=== PATIENT | female | born 1960 | race Caucasian/White ===

== ENCOUNTER 2016-08-23 17:49 | Emergency (ER) | payer MEDICARE, OTHER ==
[~2016-08-23 17:49] MED LIST: ALPR-138 PO; ASPI81 PO; FEXO180 PO; GLUCTAB PO; IBUP800 PO; LEVA750T PO; LEVO100T4 PO
[2016-08-23 17:55] VITALS: BP 149/98; PULSE 86; RESP 20; TEMP 97.9; O2SAT 98
--- NOTE | 2016-08-23 18:25 | PD ---
HPI Chief Complaint: Laceration/Skin Injury Time Seen by Provider: 18:24 Travel History International Travel<30 days: No Contact w/Intl Traveler<30days: No Traveled to known affect area: No History of Present Illness HPI 56-year-old female with MR presents to the emergency department for evaluation from her fdc. Patient is typically one-on-one and today Per report, patient experienced a fall striking the back of her head. It was witnessed her care provider. There was no loss of consciousness. Patient is unable to provide any other history. PFSH Past Medical History Autoimmune Disease: No Cancer: No Cardiovascular Problems: No Diabetes: Yes Endocrine: Yes Genitourinary: No Immune Disorder: No Musculoskeletal: No Neurologic: Yes (MENTAL RETARDATION ) Psychiatric: Yes (MENTAL RETARDATION) Reproductive: No Respiratory: No Immunizations Current: Yes Thyroid Disease: Yes Menopausal: Yes Past Surgical History AICD: No Arteriovenous Shunt: No Hysterectomy: Yes Insulin Pump: No Joint Replacement: No Pacemaker: No Social History Alcohol Use: No Tobacco Use: No Substance Use: No Allergies-Medications (Allergen,Severity, Reaction): Coded Allergies: Chocolate (Verified Allergy, Severe, 05/08/11) Reported Meds & Prescriptions Reported Meds & Active Scripts Active Reported Levaquin 750 Mg Tab (Levofloxacin) 750 Mg Tab 750 Mg PO DAILY 10 Days Motrin 800 Mg Tab (Ibuprofen) 800 Mg Tab 800 Mg PO QIDPRN Levothyroxine Sodium (Generic) (Levothyroxine Sodium) 100 Mcg Tab 100 Mcg PO DAILY Charlene (Fexofenadine HCl) 180 Mg Tab 180 Mg PO DAILY Aspirin 81 Mg Tab 81 Mg PO DAILY Glucophage (Metformin HCl) 500 Mg Tab 500 Mg PO BID Xanax (Alprazolam) 0.25 Mg Tab 0.25 Mg PO BID Review of Systems ROS Limitations: Altered Mental Status Except as stated in HPI: all other systems reviewed are Neg Physical Exam Narrative GENERAL: Well-nourished female patient, lying in bed, in no acute distress SKIN: Focused skin assessment warm/dry. HEAD: Normocephalic. Large scalp hematoma on the posterior scalp. There is a 3 cm abrasion. This does not appear to be a laceration. It is not actively bleeding. EYES: No scleral icterus. No injection or drainage. Pupils are equal and reactive. NECK: Supple, trachea midline. No JVD or lymphadenopathy. CARDIOVASCULAR: Regular rate and rhythm without murmurs, gallops, or rubs. RESPIRATORY: Breath sounds equal bilaterally. No accessory muscle use. GASTROINTESTINAL: Abdomen soft, non-tender, nondistended. MUSCULOSKELETAL: No cyanosis, or edema. Patient moves all extremities. BACK: Nontender without obvious deformity. No CVA tenderness. Data Data Last Documented VS Vital Signs Date Time Temp Pulse Resp B/P Pulse Ox O2 Delivery O2 Flow Rate FiO2 08/23/16 17:55 97.9 86 20 149/[address] Brain W/O Iv Contrast(Rout) (08/23/16 ) Ct Cerv Spine W/O Contrast (08/23/16 ) Apply Cervical Collar (08/23/16 18:17) MDM Medical Decision Making Medical Screen Exam Complete: Yes Emergency Medical Condition: Yes Medical Record Reviewed: Yes Differential Diagnosis Scalp hematoma versus skull fracture versus intracranial hemorrhage versus laceration superficial versus deep Narrative Course 56-year-old female presents to the emergency department following a fall. This was witnessed. Patient is unable to provide a history. CT imaging of the brain shows a scalp hematoma. No intracranial hemorrhage. CT imaging of cervical spine shows degenerative changes without any acute fracture or significant thecal sac stenosis. Patient abrasion is cleansed on the posterior scalp. She'll be discharged back to her fdc. Diagnosis Primary Impression: Head injury Qualified Code: S09.90XA - Head injury, initial encounter Additional Impressions: Scalp hematoma Qualified Code: S00.03XA - Scalp hematoma, initial encounter Scalp abrasion Qualified Code: S00.01XA - Scalp abrasion, initial encounter Referrals: Primary Care Physician Patient Instructions: General Instructions, Head Injury (ED) Additional Instructions: Gently wash the wound You may apply [id number] antibiotic ointments Ice to the affected area to reduce swelling Follow-up with a primary care provider If patient appears as though she is in pain, Tylenol and/or ibuprofen may be given as directed on the package Return immediately with any acute worsening of symptoms Med/Other Pt SpecificInfo: No Change to Meds Disposition: 01 DISCHARGE HOME Condition: Stable Ana Samaniego Aug 23, 2016 18:25
--- NOTE | 2016-08-23 19:08 | RADRPT ---
EXAM DATE/TIME: 08/23/2016 18:34 [facility] COMPARISON: No previous studies available for comparison. INDICATIONS : Altered mental status; possible fall. RADIATION DOSE: 56.35 CTDIvol (mGy) MEDICAL HISTORY : Non-responsive. SURGICAL HISTORY : Non-responsive. ENCOUNTER: Initial ACUITY: 1 day PAIN SCALE: Non-responsive LOCATION: cranial TECHNIQUE: Multiple contiguous axial images were obtained of the head. Using automated exposure control and adj ustment of the mA and/or kV according to patient size, radiation dose was kept as low as reasonably a chievable to obtain optimal diagnostic quality images. FINDINGS: There is no evidence for intracranial hemorrhage, mass effect, mass lesions, edema, or extra-axial fl uid collections. The visualized bony structures appear intact. The ventricles are normal size for t he patient's age. There are no signs of acute infarction for technique. There is scalp hematoma in t he right posterior high convexity parietal region with mucoperiosteal thickening of the maxillary sin uses. CONCLUSION: Scalp hematoma. Vincenzo Davis MD on August 23, 2016 at 19:04 Board Certified Radiologist. This report was verified electronically.
--- NOTE | 2016-08-23 19:12 | RADRPT ---
EXAM DATE/TIME: 08/23/2016 18:36 [facility] COMPARISON: No previous studies available for comparison. INDICATIONS : Altered mental status; possible fall. RADIATION DOSE: 34.38 CTDIvol (mGy) MEDICAL HISTORY : Non-responsive. SURGICAL HISTORY : Non-responsive. ENCOUNTER: Initial ACUITY: 1 day PAIN SCALE: Non-responsive LOCATION: neck TECHNIQUE: Volumetric scanning of the cervical spine was performed. Multiplanar reconstructions in the sagittal, coronal and oblique axial planes were performed. Using automated exposure control and adjustment o f the mA and/or kV according to patient size, radiation dose was kept as low as reasonably achievable to obtain optimal diagnostic quality images. FINDINGS: No evidence of subluxation. No definite fracture is seen for technique. C2-C3: There is no evidence for any significant compromise to the thecal sac, or the exiting nerve roots. N o appreciable thecal sac stenosis is seen. The neural foramina and lateral recess appear patent bila terally. C3-C4: There is no evidence for any significant compromise to the thecal sac, or the exiting nerve roots. N o appreciable thecal sac stenosis is seen. The neural foramina and lateral recess appear patent bila terally. C4-C5: Slight degenerative changes are seen within the disc space and facets. Slight bulging disc and hypert rophic changes are seen with indentation on the thecal sac and no significant compromise to the theca l sac or the exiting nerve roots. C5-C6: Significant degenerative changes are seen within the disc space and facets. There is effacement of th e anterior CSF space due to chronic hypertrophic changes, some degree of bulging disc with compromise to the anterior CSF space, however overall no significant thecal sac stenosis is seen. C6-C7: Moderate degenerative changes are seen within the disc space and facets. Slight bulging disc and hype rtrophic changes are seen with indentation on the thecal sac and no significant compromise to the the sarah sac or the exiting nerve roots. C7-T1: Slight degenerative changes are seen within the disc space and facets. Slight bulging disc and hypert rophic changes are seen with indentation on the thecal sac and no significant compromise to the theca l sac or the exiting nerve roots. CONCLUSION: Degenerative changes without any acute fracture or any significant thecal sac stenosis. Vincenzo Davis MD on August 23, 2016 at 19:06 Board Certified Radiologist. This report was verified electronically.
== END 2016-08-23 20:45 | disposition home or self-care (01) ==
LOC: NEDAMB 17:49
DX: S00.01XA Abrasion of scalp, initial encounter (principal); W19.XXXA Unspecified fall, initial encounter; Y92.049 Unspecified place in boarding-house as the place of occurrence of the external cause
CPT/HCPCS: 70450; 72125

== ENCOUNTER 2018-05-22 00:28 | Inpatient (IN) ==
--- NOTE | 2018-05-22 00:53 | ED ---
HPI General Chief Complaint: Stroke Alert Stated Complaint: Trans/Medical Time Seen by Provider: 05/22/18 00:40 Source: EMS and old records reviewed Mode of arrival: EMS Limitations: altered mental status and physical limitation History of Present Illness HPI Narrative: 58-year-old woman, reported history of "mental retardation", resident at [facility], presents to the emergency department with altered mental status. According to EMS she is a baseline nonverbal. They report that an hour and a half prior to arrival she got up and walked with the staff member to the bathroom. When he went to check on her later in the evening, she was not arousable. EMS reports in route she had minimal response to noxious stimulus. Did localize with the right, withdrawal on the left, and withdrawal from pain in the lower extremities. She had moaning to noxious stimulus. She had myotic pupils. No response to 0.4 Narcan. She is not on any opiates regularly. According to her more she is on Xanax, last dose quarter milligram at 4 PM. No other reported recent illness or injury. Related Data Allergies Allergy/AdvReac Type Severity Reaction Status Date / Time chocolate flavor Allergy Severe Unverified 01/01/17 13:48 Review of Systems ROS Unobtainable ROS Unobtainable: unobtainable due to mental condition [facility] Medical History Medical History Diabetes (Chronic) Hypothyroidism (Chronic) Intellectual disability (Chronic) Social History Social History Substance History: Unable to Obtain Smoking Status: Unknown if ever smoked How Often Do You Have a Drink Containing Alcohol: Unable to Obtain Recent Travel in [facility] [place] within the Last 8 Weeks: No Recent Out of Country Travel within the Last 8 Weeks: No Immunization History Tetanus Immunization: Unable to Assess Exam Narrative Exam Narrative: GENERAL: 58-year-old woman, minimally responsive, no respiratory distress. SKIN: Focused skin assessment warm/dry. HEAD: Atraumatic. Normocephalic. EYES: Myotic pupils. Absent/negative doll's eye reflex. ENT: No nasal bleeding or discharge. Mucous membranes pink and moist. NECK: Trachea midline. No JVD. CARDIOVASCULAR: Regular rate and rhythm. 2 out of 6 systolic murmur in the left chest. RESPIRATORY: No accessory muscle use. Clear to auscultation. Breath sounds equal bilaterally. GASTROINTESTINAL: Abdomen soft, non-tender, nondistended. Hepatic and splenic margins not palpable. MUSCULOSKELETAL: No obvious deformities. No edema. NEUROLOGICAL: Decreased responsiveness. Moaning to noxious stimulus. Motor response is variable. At times she will move somewhat spontaneously, other times she will not withdraw from pain despite having obvious sensation. There is no obvious facial asymmetry. Myotic pupils. VOR appears to be out. Sensation appears intact in all 4 extremities. Course Reevaluation(s) Reevaluation #1: CT shows no definite evidence of stroke. Persistent altered mental status. We will plan on admission to the ICU. Mild hypercarbia. Will monitor. I do not think she needs to be intubated at this point. Initial Documented Vital Signs Pulse Rate 58 L 05/22/18 00:31 Respiratory Rate 10 L 05/22/18 00:31 Blood Pressure 149/89 H 05/22/18 00:31 Pulse Oximetry 95 05/22/18 00:31 Last Documented Vital Signs Pulse Rate 58 L 05/22/18 00:31 Respiratory Rate 10 L 05/22/18 00:31 Blood Pressure 149/89 H 05/22/18 00:31 Pulse Oximetry 95 05/22/18 00:31 Medical Decision Making MDM Narrative Medical decision making narrative: 58-year-old woman, abrupt onset of altered mental status, stroke alert was called given the abrupt neuro change. Deficits include decreased alertness, diminished motor response to noxious stimulus, and what appears to be absent VOR at the could suggest a brainstem infarct. Seizures also on the differential although seems less likely. Toxic, drug effect, metabolic encephalopathy, also possible. Will check labs, ABG, CT, CTA , reassess. I spoke with Dr. Valentine with neurology. We are in agreement, short of evidence of basilar artery stroke or objective evidence that etiology of patient's symptoms of CVA, would recommend against TPA. Medical Screen Exam Complete: Yes Emergency Medical Condition: Yes Lab Data Result diagrams: 05/22/18 00:25 Lab Results 05/22/18 05/22/18 05/22/18 Range/Units 00:25 00:25 00:35 POC Hgb (Calc) 13.6 (11.6-15.3) g/dL POC Hct 40.0 (35-46.0) % PT 10.1 (9.8-11.6) sec INR 1.0 Ratio APTT 21.6 L (23.4-31.7) sec Fibrinogen 216 L (227-377) mg/dL Puncture Site Patient Temperature O2 Saturation (90-100) % ABG pH (7.380-7.420) ABG pCO2 (38-42) mmHg ABG pO2 (61-120) mmHg ABG HCO3 (22-26) mmol/L ABG O2 Content (12.0-20.0) Vol % ABG Base Excess (-2-2) mmol/L ABG Methemoglobin (0-2) % Segun Test Hemoglobin (12.0-16.0) G/DL Carboxyhemoglobin (0-4) % Inspired O2 % Critical Value POC Sodium 144 (137-144) mmol/L POC Potassium 4.5 (3.6-5.0) mmol/L POC Chloride 105 (102-111) mmol/L POC BUN 27 H (5-21) mg/dL POC Creatinine 0.7 (0.6-1.3) mg/dL POC Glucose 145 H (68-110) mg/dL Total Creatine Kinase 88 (26-192) U/L Troponin I Less than 0.02 L (0.02-0.05) ng/mL Blood Type O Positive 05/22/18 Range/Units 01:10 POC Hgb (Calc) (11.6-15.3) g/dL POC Hct (35-46.0) % PT (9.8-11.6) sec INR Ratio APTT (23.4-31.7) sec Fibrinogen (227-377) mg/dL Puncture Site Right brachial Patient Temperature 98.6 O2 Saturation 93 (90-100) % ABG pH 7.35 L (7.380-7.420) ABG pCO2 56 H* (38-42) mmHg ABG pO2 78 (61-120) mmHg ABG HCO3 30 H (22-26) mmol/L ABG O2 Content 16.5 (12.0-20.0) Vol % ABG Base Excess 4.5 H (-2-2) mmol/L ABG Methemoglobin 0.7 (0-2) % Segun Test Present Hemoglobin 12.6 (12.0-16.0) G/DL Carboxyhemoglobin 1.1 (0-4) % Inspired O2 21 % Critical Value Yes POC Sodium (137-144) mmol/L POC Potassium (3.6-5.0) mmol/L POC Chloride (102-111) mmol/L POC BUN (5-21) mg/dL POC Creatinine (0.6-1.3) mg/dL POC Glucose (68-110) mg/dL Total Creatine Kinase (26-192) U/L Troponin I (0.02-0.05) ng/mL Blood Type Imaging Data Radiologist's impression: CT CAD 05/22/18 00:38 CONCLUSION: Physiological brain perfusion parameters with RAPID analysis as above. The decision for consideration of therapy is multi factorial and multi disciplinary relying on subjective and objective clinical data. This data is not construed or intended to be the sole determinant of treatment eligibility. Chest X-Ray 05/22/18 00:38 CONCLUSION: No acute cardiopulmonary process. Head CT 05/22/18 00:38 CONCLUSION: 1. No acute areas of hemorrhage or mass effect are seen. 2. Questionable hyperdense distal left M1 middle cerebral artery. This could be further evaluated with a CTA. The patient is scheduled for a CTA. Report was called by [Dr. Crawley to Dr. Delgado at 12:59 AM.] Head CTA 05/22/18 00:38 CONCLUSION: Negative CTA of the head. Neck CTA 05/22/18 00:38 CONCLUSION: 1. Plaque at the carotid bulb regions being worse than the left but a significant stenosis is not seen. 2. Asymmetry to the vertebral arteries which can be seen normally. The left vertebral artery is larger and continues as the basilar artery. The right vertebral artery ends at the posterior inferior cerebellar artery. 3. Normal appearance of the left vertebral artery arising directly from the aortic arch. ECG Data Attestation: I personally reviewed and interpreted this ECG as follows: Interpretation: Sinus bradycardia at a rate of 58, leftward axis, normal intervals, no acute ischemia. Discharge Plan Discharge Disposition Patient Disposition: ED Admit(ED Internal Use Only) Physicians Team ED Provider: Clem Delgado Primary Care Provider: UNKNOWN, Other Providers: Lc Jones Status ED Status: With Doctor
--- NOTE | 2018-05-22 01:02 | CT ---
EXAM DATE: 05/22/2018 12:54 AM EST AGE/SEX: 58 years / Female INDICATIONS: STROKE ALERT, unresponsive, unable to move lower extremities. CLINICAL DATA: This is the patient's initial encounter. Patient reports that signs and symptoms have been present for 1 day and indicates a pain score of 0/10. MEDICAL/SURGICAL HISTORY: Non-responsive. mentally challenged Non-responsive. RADIATION DOSE: 53.22 CTDI (mGy) COMPARISON: No prior exams available for comparison. TECHNIQUE: CT of the head without contrast. Using automated exposure control and adjustment of the mA and/or kV according to patient size, radiation dose was kept as low as reasonably achievable to ob tain optimal diagnostic quality images. DICOM format image data is available electronically for revi ew and comparison. FINDINGS: Cerebrum: The ventricles are normal for age. There is a questionable hyperdense linear area seen at the anterior left temporal region which could be in the distal left middle cerebral artery. No eviden ce of midline shift, mass lesion, hemorrhage or acute infarction. No extraaxial fluid collections ar e seen. Posterior Fossa: The cerebellum and brainstem are intact. The 4th ventricle is midline. The cerebe llopontine angle is unremarkable. Extracranial: The visualized portion of the orbits is intact. Skull: The calvaria is intact. No evidence of skull fracture. CONCLUSION: 1. No acute areas of hemorrhage or mass effect are seen. 2. Questionable hyperdense distal left M1 middle cerebral artery. This could be further evaluated wi th a CTA. The patient is scheduled for a CTA. Report was called by [Dr. Crawley to Dr. Delgado at 12:59 AM.] Electronically signed by: Adán Crawley MD Board Certified Radiologist 05/22/2018 1:01 AM EST
--- NOTE | 2018-05-22 01:07 | CT ---
EXAM DATE: 05/22/2018 1:01 AM EST AGE/SEX: 58 years / Female INDICATIONS: STROKE ALERT, unresponsive, unable to move lower extremities. CLINICAL DATA: This is the patient's initial encounter. Patient reports that signs and symptoms have been present for 1 day and indicates a pain score of Nonresponsive. MEDICAL/SURGICAL HISTORY: Non-responsive. mentally challenged Non-responsive. RADIATION DOSE: 217.32 CTDI (mGy) COMPARISON: [facility], CTA HEAD W CONTRAST W 3D, 05/22/2018. . TECHNIQUE: CT of the head after intravenous administration of 100ml ml Visipaque 320 (iodixanol) no nionic water-soluble contrast as a cumulative dose for multiple exams. Using automated exposure cont rol and adjustment of the mA and/or kV according to patient size, radiation dose was kept as low as r easonably achievable to obtain optimal diagnostic quality images. DICOM format image data is availab le electronically for review and comparison. FINDINGS: 1. CBF (<30%) Volume (ml): 0ml 2. Perfusion (Tmax>6.0s) Volume (ml): 30ml 3. Mismatch Volume (ml) (Tmax>6.0 - CBF): 30ml CONCLUSION: Physiological brain perfusion parameters with RAPID analysis as above. The decision for consideration of therapy is multi factorial and multi disciplinary relying on subjec tive and objective clinical data. This data is not construed or intended to be the sole determinant of treatment eligibility. Electronically signed by: Adán Crawley MD Board Certified Radiologist 05/22/2018 1:05 AM EST
[2018-05-22 01:10] LABS: Activated Partial Thrombo Time 21.6 sec (23.4-31.7); Prothrombin Time 10.1 sec (9.8-11.6)
--- NOTE | 2018-05-22 01:11 | CT ---
EXAM DATE: 05/22/2018 1:04 AM EST AGE/SEX: 58 years / Female INDICATIONS: STROKE ALERT, unresponsive, unable to move lower extremities. CLINICAL DATA: This is the patient's initial encounter. Patient reports that signs and symptoms have been present for 1 day and indicates a pain score of Nonresponsive. MEDICAL/SURGICAL HISTORY: . mentally challenged Non-responsive. RADIATION DOSE: 10.02 CTDI (mGy) [place] [facility] [place] W 3D, 05/22/2018. . TECHNIQUE: Volumetric scanning was performed using a multi-row detector CT scanner during bolus infu lamar of 100ml ml Visipaque 320 (iodixanol) nonionic water-soluble contrast as a cumulative dose for multiple exams. The data was post processed with a variety of visualization algorithms including fu ll volume maximum intensity projection, multi-planar sliding thin slab reformation, curved planar ref ormation, and surface rendering techniques. Using automated exposure control and adjustment of the m A and/or kV according to patient size, radiation dose was kept as low as reasonably achievable to obt ain optimal diagnostic quality images. DICOM format image data is available electronically for revie w and comparison. FINDINGS: There is excellent visualization of the major intracranial arteries out to the second-order branch ve ssels. There is no evidence for aneurysm, vessel truncation or stenosis, and no evidence for vascula r malformation. No significant area of stenosis or occlusion is seen. On the CT examination, there is questionable hy perdense distal left middle cerebral artery. The left middle cerebral artery is normal on the CTA. Th e CTA better evaluates the vessels. CONCLUSION: Negative CTA of the head. Electronically signed by: Adán Crawley MD Board Certified Radiologist 05/22/2018 1:10 AM EST
--- NOTE | 2018-05-22 01:19 | CT ---
EXAM DATE: 05/22/2018 1:10 AM EST AGE/SEX: 58 years / Female INDICATIONS: STROKE ALERT, unresponsive, unable to move lower extremities. CLINICAL DATA: This is the patient's initial encounter. Patient reports that signs and symptoms have been present for 1 day and indicates a pain score of Nonresponsive. MEDICAL/SURGICAL HISTORY: . mentally challenged Non-responsive. RADIATION DOSE: 10.02 CTDI (mGy) COMPARISON: No prior exams available for comparison. TECHNIQUE: Volumetric scanning was performed using a multirow detector CT scanner during bolus infus ion of 100ml ml Visipaque 320 (iodixanol) nonionic water-soluble contrast as a cumulative dose for m ultiple exams. The data was postprocessed with a variety of visualization algorithms including full -volume maximum intensity projection, multiplanar sliding thin-slab reformation, curved-planar reform ation, and surface-rendering techniques. Using automated exposure control and adjustment of the mA a nd/or kV according to patient size, radiation dose was kept as low as reasonably achievable to obtain optimal diagnostic quality images. DICOM format image data is available electronically for review a nd comparison. FINDINGS: Aortic Arch: There is a three-vessel origin of the great vessels from the aorta. In addition, the l eft vertebral artery arises directly from the aorta to the left common and left subclavian arteries. This is a normal variant. No evidence of ostial narrowing Right Carotid: The common carotid artery is intact. There is mild calcification seen at the carotid bulb without significant stenosis.. The internal carotid artery lumen is smooth without stenosis. T he external carotid artery is intact. Left Carotid: The common carotid artery is intact. There is mild plaque at the left carotid bulb re gion with only mild areas of stenosis. A hemodynamically significant stenosis is not seen. The product managent intern al carotid artery lumen is smooth without stenosis. The external carotid artery is intact. Vertebrals: The vertebral arteries are asymmetric flow to large being larger. Both vertebral arterie s are seen to be patent throughout the neck. The left vertebral artery continues as the left vertebra l artery. The right vertebral artery appears to end at the posterior inferior cerebellar artery. Percent stenosis is calculated using the diameter of the stenotic region over the diameter of the nor mal distal internal carotid artery. CONCLUSION: 1. Plaque at the carotid bulb regions being worse than the left but a significant stenosis is not se en. 2. Asymmetry to the vertebral arteries which can be seen normally. The left vertebral artery is larg er and continues as the basilar artery. The right vertebral artery ends at the posterior inferior cer ebellar artery. 3. Normal appearance of the left vertebral artery arising directly from the aortic arch. Electronically signed by: Adán Crawley MD Board Certified Radiologist 05/22/2018 1:18 AM EST
--- NOTE | 2018-05-22 01:21 | XR ---
EXAM DATE: 05/22/2018 1:14 AM EST AGE/SEX: 58 years / Female INDICATIONS: Stroke alert. CLINICAL DATA: This is the patient's initial encounter. Patient reports that signs and symptoms have been present for 1 day and indicates a pain score of Nonresponsive. MEDICAL/SURGICAL HISTORY: Non-responsive. Non-responsive. COMPARISON: No prior exams available for comparison. FINDINGS: A single AP view of the chest demonstrates the lungs to be symmetrically aerated without evidence of mass, infiltrate or effusion. The cardiomediastinal contours are unremarkable. Osseous structures a re intact. There are nonspecific areas of calcification the left upper quadrant of the abdomen. CONCLUSION: No acute cardiopulmonary process. Electronically signed by: Adán Crawley MD Board Certified Radiologist 05/22/2018 1:20 AM EST
[2018-05-22 01:22] LABS: ABG Base Excess 4.5 mmol/L (-2-2); ABG PCO2 56 mmHg (38-42); ABG PO2 78 mmHg (61-120)
[2018-05-22 01:26] LABS: Creatine Kinase 88 U/L (26-192)
[2018-05-22] MEDS ORDERED: Acetaminophen 325 MG Tablet PO PRN (02:44)
[2018-05-22] MEDS ORDERED: Enoxaparin Inj 40 MG/0.4 ML Syringe SQ SCH (02:45)
[2018-05-22] MEDS ORDERED: Dextrose 50% in Water 50 ML Vial IV.PUSH PRN (02:48)
[2018-05-22 03:16] LABS: Baso % (Auto) 0.9 % (0.0-2.0); Eos # (Auto) 0.2 th/mm3 (0.0-0.4); Eos % (Auto) 4.7 % (0.0-4.0); Hematocrit 40.4 % (35.0-46.0); Hemoglobin 13.8 gm/dL (11.6-15.3); Lymph # (Auto) 1.7 th/mm3 (1.0-4.8); Lymph % (Auto) 33.4 % (9.0-44.0); Mean Corpuscular HGB Conc 34.1 % (32.0-36.0); Mean Corpuscular Hemoglobin 30.5 pg (27.0-34.0); Mean Corpuscular Volume 89.4 fL (80.0-100.0); Mean Platelet Volume 7.9 fL (7.0-11.0); Mono # (Auto) 0.5 th/mm3 (0.0-0.9); Mono % (Auto) 9.3 % (0.0-8.0); Neut # (Auto) 2.6 th/mm3 (1.8-7.7); Neut % (Auto) 51.7 % (16.0-70.0); Platelet Count 172 th/mm3 (150-450); Red Blood Count 4.51 mil/mm3 (4.00-5.30); Red Cell Distribution Width 13.2 % (11.6-17.2); White Blood Count 5.1 th/mm3 (4.0-11.0)
[2018-05-22 03:20] LABS: Bacteria,Urine Many /hpf; Bilirubin,Urine Negative (Negative); Clarity,Urine Cloudy (Clear); Color,Urine Yellow (Yellw/Straw); Glucose,Urine (UA) Negative (Negative); Leukocyte Esterase,Urine Large (Negative); Mucus,Urine Few /lpf (Occasional); Nitrite,Urine Positive (Negative); Specific Gravity,Urine 1.042 (1.002-1.035); Squamous Epithelial Cell,Urine 4 /hpf (0-5)
[2018-05-22 03:22] LABS: Amphetamine Screen,Urine Neg (Neg); Barbiturate Screen,Urine Neg (Neg); Cannabinoid Screen,Urine Neg (Neg); Cocaine Screen,Urine Neg (Neg)
[2018-05-22 03:23] LABS: Opiate Screen,Urine Neg (Neg)
--- NOTE | 2018-05-22 03:27 | P.HPIM ---
History of Present Illness Primary Care Physician: History from patient's shelter staff, ER physician communication,Staff member from the facility, and review of medical records. Patient is baseline Aphasic However she is able to ambulate at the nursing facility. Staff at the facility reported that patient was walking around going to the bathroom on her own at around 9:30 PM. At 11:30 PM, after the at 11:30 PM, the staff member who spoke to me went and checked on the patient for vitals and during that time noted that patient was unresponsive, looked lethargic. Therefore EMS was called. EMS gave patient Narcan and no response. Patient was noted to have pinpoint pupils. While in the emergency room, patient also was very lethargic although she does move her lower extremities and upper extremities spontaneously. Stroke alert was initially called. Her CT brain is negative for acute pathology. Per staff from the facility, patient is well-known to them and they usually can tell when patient has complaints. Staff reported that patient was not having any acute symptoms over the past few weeks such as fever/cough/nausea/vomiting/ diarrhea/urinary symptoms/blood in stool or urine. She was not having any shortness of breath or passing out episodes or falls. In regards to her medications, there was no new changes to her medications. Staff stated that patient is on Xanax twice daily and temazepam nightly. When this was changed, patient usually takes her evening dose of Xanax at 4 PM and takes temazepam late at night. Again, this is not a new change for her. Review of system: Complete review of system is performed and is negative apart from what is mentioned in HPI Past medical history: Hypothyroidism Severe mental retardation since Past surgical history: Unknown Family history: Unknown. No family members present. Social history: Patient of a long-term facility. Mentally challenged. Aphasic. Home medications: Patient has list of her medications with her from the facility. The nurse confirmed that this was updated on our med reconciliation system. Inpatient Certification Inpatient Certification: I certify that the inpatient services were ordered in accordance with Medicare regulations governing the order. This includes certification that hospital inpatient services are reasonable and necessary and in the case of services not specified as inpatient-only under 42 CFR 419.22(n), that they are appropriately provided as inpatient services in accordance to with the 2-midnight benchmark under 43 CFR 412.3(e) Estimated Total Length of Stay (Days): 3 Plans for Post Hospital Care: retirement Review of Systems Review of Systems: all other systems reviewed are negative [facility] Medical History Medical History Diabetes (Chronic) Hypothyroidism (Chronic) Intellectual disability (Chronic) Social History Social History Substance History: Unable to Obtain Smoking Status: Unknown if ever smoked How Often Do You Have a Drink Containing Alcohol: Unable to Obtain Recent Travel in [facility] within the Last 8 Weeks: No Recent Out of Country Travel within the Last 8 Weeks: No Immunization History Tetanus Immunization: Unable to Assess Medications and Allergies Allergies Allergy/AdvReac Type Severity Reaction Status Date / Time chocolate flavor Allergy Severe Hives Unverified 05/22/18 03:16 Home Medications Medication Instructions Recorded Confirmed Type acetaminophen 500 mg PO Q6H PRN MDD 100mg 05/22/18 05/22/18 History alprazolam 0.25 mg PO BID 05/22/18 05/22/18 History aspirin [Aspirin Low Dose] 81 mg PO DAILY 05/22/18 05/22/18 History cetirizine 10 mg PO DAILY 05/22/18 05/22/18 History cholecalciferol (vitamin D3) 50,000 unit PO WEEKLY 05/22/18 05/22/18 History [Vitamin D3] docusate sodium 100 mg PO DAILY 05/22/18 05/22/18 History ferrous sulfate 325 mg PO BID 05/22/18 05/22/18 History fexofenadine 180 mg PO DAILY 05/22/18 05/22/18 History guaifenesin [Tussin] 100 mg PO Q4HR 05/22/18 05/22/18 History levothyroxine 100 mcg PO DAILY 05/22/18 05/22/18 History loperamide 2 mg PO DAILY 05/22/18 05/22/18 History promethazine 25 mg PO Q6H PRN MDD 100 05/22/18 05/22/18 History propranolol 10 mg PO BID 05/22/18 05/22/18 History temazepam 15 mg PO HS 05/22/18 05/22/18 History Active Medications: Active Medications Acetaminophen (Tylenol) 650 mg PO Q4H PRN PRN Reason: Temp > 100.4 Dextrose (D50w Vial) 50 ml IV.PUSH UNSCH PRN PRN Reason: PER HYPOGLYCEMIA PROTOCOL Enoxaparin Sodium (Lovenox Inj) 40 mg SQ Q24H ZION Glucagon (Glucagon Inj) 1 mg OTHER PRN PRN PRN Reason: for Hypoglycemia Protocol Sodium Chloride (Ns Inj) 1,000 mls @ 70 mls/hr IV.CONT .[id number] ZION Potassium Chloride/Dextrose/Sod Cl (D5w/1/2ns + Kcl 20 Meq Inj) 1,000 mls @ 100 mls/hr IV.CONT .Q10H ZION Ceftriaxone Sodium 2,000 mg/ (Sodium Chloride) 100 mls @ 200 mls/hr IV.SIG Q12H ZION Insulin Aspart (Novolog Insulin Correctional Sugar Inj) 0 unit SQ Q6HR ZION; Protocol Ondansetron HCl (Zofran Inj) 4 mg IV.PUSH Q6H PRN PRN Reason: NAUSEA OR VOMITING Sodium Chloride (Ns Flush) 2 ml IV.FLUSH BID ZION Sodium Chloride (Ns Flush) 2 ml IV.FLUSH PRN PRN PRN Reason: FLUSH AFTER USING IV ACCESS Physical Exam Vital signs: Last Vital Signs Temp 97 F L 05/22/18 03:05 Pulse 55 L 05/22/18 03:05 Resp 10 L 05/22/18 03:05 BP 171/70 H 05/22/18 03:05 Pulse Ox 95 05/22/18 00:31 Intake & Output 05/19/18 05/20/18 05/21/18 05/22/18 06:59 06:59 06:59 06:59 Weight 71.2 kg GENERAL: Looks much older than her age. Not in acute distress. However is not opening her eyes. HEENT: Pupils are pinpoint. Nonreactive. Not tracking at all. Obvious neck rigidity on exam. CARDIOVASCULAR: Regular rate and rhythm without murmurs, gallops, or rubs. RESPIRATORY: Clear to auscultation. Breath sounds equal bilaterally. No wheezes , rales, or rhonchi. However with limited exam as patient is not following commands and has poor inspiratory effort. GASTROINTESTINAL: Abdomen soft, non-tender, nondistended. Normal active bowel sounds MUSCULOSKELETAL: Extremities without clubbing, cyanosis, or edema. NEURO: Lethargic. Closing her eyes. However is able to move her hand spontaneously although not purposeful. Similarly, she is moving her lower extremities although not purposeful. Pinpoint pupils. Not tracking at all. Results Labs CBC & Chem 7: 05/22/18 03:[address] CAD 05/22/18 00:38 CONCLUSION: Physiological brain perfusion parameters with RAPID analysis as above. The decision for consideration of therapy is multi factorial and multi disciplinary relying on subjective and objective clinical data. This data is not construed or intended to be the sole determinant of treatment eligibility. Chest X-Ray 05/22/18 00:38 CONCLUSION: No acute cardiopulmonary process. Head CT 05/22/18 00:38 CONCLUSION: 1. No acute areas of hemorrhage or mass effect are seen. 2. Questionable hyperdense distal left M1 middle cerebral artery. This could be further evaluated with a CTA. The patient is scheduled for a CTA. Report was called by [Dr. Crawley to Dr. Delgado at 12:59 AM.] Head CTA 05/22/18 00:38 CONCLUSION: Negative CTA of the head. Neck CTA 05/22/18 00:38 CONCLUSION: 1. Plaque at the carotid bulb regions being worse than the left but a significant stenosis is not seen. 2. Asymmetry to the vertebral arteries which can be seen normally. The left vertebral artery is larger and continues as the basilar artery. The right vertebral artery ends at the posterior inferior cerebellar artery. 3. Normal appearance of the left vertebral artery arising directly from the aortic arch. Caprini VTE Risk Assessment Caprini VTE Risk Assessment: Moderate/High Risk (score >= 2) Caprini Risk Assessment Model: Point Value = 1 Point Value = 2 Point Value = 3 Point Value = 5 Age 41-60 Minor surgery BMI > 25 kg/m2 Swollen legs Varicose veins or History of unexplained or recurrent spontaneous Oral contraceptives or hormone replacement Sepsis (< 1 month) Serious lung disease, including pneumonia (< 1 month) Abnormal pulmonary function Acute myocardial infarction Congestive heart failure (< 1 month) History of inflammatory bowel disease Medical patient at bed rest Age 61-74 Arthroscopic surgery Major open surgery (> 45 min) Laparoscopic surgery (> 45 min) Malignancy Confined to bed (> 72 hours) Immobilizing plaster cast Central venous access Age >= 75 History of VTE Family history of VTE Factor V Leiden Prothrombin [id number] Lupus anticoagulant Anticardiolipin antibodies Elevated serum homocysteine Heparin-induced thrombocytopenia Other congenital or acquired thrombophilia Stroke (< 1 month) Elective arthroplasty Hip, pelvis, or leg fracture Acute spinal cord injury (< 1 month) Prophylaxis Regimen: Total Risk Factor Score Risk Level Prophylaxis Regimen 0-1 Low Early ambulation 2 Moderate Order ONE of the following: *Sequential Compression Device (SCD) *Heparin 5000 units SQ BID 3-4 Higher Order ONE of the following medications: *Heparin 5000 units SQ TID *Enoxaparin/Lovenox 40 mg SQ daily (WT < 150 kg, CrCl > 30 mL/min) *Enoxaparin/Lovenox 30 mg SQ daily (WT < 150 kg, CrCl > 10-29 mL/min) *Enoxaparin/Lovenox 30 mg SQ BID (WT < 150 kg, CrCl > 30 mL/min) AND/OR *Sequential Compression Device (SCD) 5 or more Highest Order ONE of the following medications: *Heparin 5000 units SQ TID (Preferred with Epidurals) *Enoxaparin/Lovenox 40 mg SQ daily (WT < 150 kg, CrCl > 30 mL/min) *Enoxaparin/Lovenox 30 mg SQ daily (WT < 150 kg, CrCl > 10-29 mL/min) *Enoxaparin/Lovenox 30 mg SQ BID (WT < 150 kg, CrCl > 30 mL/min) AND *Sequential Compression Device (SCD) Assessment and Plan Plan Impression: Acute encephalopathy Possible meningitis. Bacterial versus viral. Leukocytosis Eosinophilia Sinus bradycardia on EKG PCO2 of 56 on ABG. With compensated pH.We will monitor for CO2 retention. Hypothyroidism Severe mental retardation since Plan: Patient's imaging studies reviewed. No pathology to explain her encephalopathy. We will start patient on Rocephin 2 g IV every 12 hours. Start vancomycin 15-20 mg/kg IV every 12 hours meningitic dose. Start on ampicillin for Listeria coverage. EEG in a.m. Ammonia level. Lactobacillus. We will check TSH. Patient is bradycardic on EKG. Will monitor on telemetry. Although patient pH is compensated, PCO2 slightly high at 56. We will repeat. DVT prophylaxis with Lovenox.
[2018-05-22] MEDS: KCL 20 mEq/D5W/NaCl 0.45% Inj 1,000 ML IV.CONT SCH ×2 (03:30→16:03)
[2018-05-22] MEDS: Sod Chloride 0.9% Inj 1,000 ML IV.CONT SCH ×2 (03:33→15:41)
[2018-05-22] MEDS ORDERED: Vancomycin Consult Pharmacy OTHER PRN (04:49)
[2018-05-22] MEDS ORDERED: Vancomycin Inj 1,500 MG in Sodium Chlor 0.9% Inj 500 ML IV.SIG SCH (05:00)
[2018-05-22 06:06] LABS: Prothrombin Time 10.3 sec (9.8-11.6)
[2018-05-22] MEDS: Insulin NovoLOG Aspart Correctional Sugar Inj SQ SCH ×4 (07:14→23:28)
[2018-05-22 09:00] LABS: ABG Base Excess 3.5 mmol/L (-2-2); ABG PCO2 48 mmHg (38-42); ABG PO2 95 mmHG (61-120)
[2018-05-22 10:29] LABS: Free T4 (Free Thyroxine) 0.92 ng/dL (0.76-1.46)
--- NOTE | 2018-05-22 10:33 | P.PNADD ---
Addendum to Inpatient Note Reason for Addendum: Additional Documentation Additional information: Caregiver at the bedside, says that the patient is more alert now than last night but is still not alert enough to her baseline. Says at baseline the patient has developmental delay and does not verbalize any words but just makes incoherent sounds. Says that at baseline the patient usually follows instructions, feeds herself. Caregiver will give me a friendly warning that if and when the patient becomes more alert and back to her baseline she will become very uncooperative with imaging and testing and even venipunctures. Patient appears to be awake, alert. Appears to have a good GCS at least 12. Drank water for the nurse. Clear lungs bilaterally, labored breathing Heart sounds regular rate and rhythm No lower extremity edema Extraocular motions intact, follows fist automobile rental clerk commands, grossly moves all 4 extremities continuously Pupils are constricted bilaterally and symmetrical and round TSH significantly elevated, ordering free T4 and B12 levels. MRI ordered if patient is cooperative. LP has been put on hold due to the Lovenox shot being given earlier this morning.
--- NOTE | 2018-05-22 15:01 | MB ---
cc: Lc Jones MD, PhD DATE: 05/22/2018 NEUROLOGY CONSULTATION REASON FOR CONSULTATION: Unresponsiveness. HISTORY OF PRESENT ILLNESS: This is a 68-year-old female who has baseline mental retardation as well as aphagia; lives in a fpc, who was found unresponsive and EMS was called. EMS gave her Narcan; no response. In the ER she is very lethargic with no focal abnormalities. She had a CT of the brain, which is unremarkable. She has since regained consciousness; is not communicative, which is apparently her baseline state. Again, no focal deficits. PAST MEDICAL HISTORY: History of severe mental retardation since , hypothyroidism. MEDICATIONS: Currently are: 1. Ampicillin 2. Tylenol. 3. Ceftriaxone. 4. Lovenox 40 mg subcutaneously daily. 5. Insulin. 6. Levothyroxine. 7. Lactobacillus. 8. Zofran. 9. Vancomycin. NEUROLOGICAL EXAMINATION: VITAL SIGNS: Blood pressure is 171/70, temperature 96.8 degrees, pulse 74. HIGHER CORTICAL FUNCTION: She is lethargic, but arousable; does not talk. She does not follow commands. Cranial nerves are intact. There is no facial asymmetry. Motor exam demonstrates normal strength of all major groups in both upper and lower extremities. Tone is normal. Reflexes are symmetric. IMAGING STUDIES: 1. CT brain normal, except questionable hyperdense MCA on the left. 2. She did have a CT angiogram of the brain, which is normal. No evidence of any MCA occlusion. 3. She had a CT angiogram of the neck as well with bilateral carotid plaquing, but no significant stenosis; asymmetry to the vertebral arteries, possibly normal variant. LABORATORY DATA: White count is 5100, hemoglobin 13.8, hematocrit 40%, platelet count is 172,000. PT 10.1, INR 1, aPTT 21.6. Sodium is 144, potassium 4.5, chloride 105, BUN is 27, creatinine 0.7, glucose is 145. DIAGNOSTIC DATA: EEG does reveal epileptiform discharges in the frontal region, but the official report is pending. IMPRESSION: This may have been a seizure given the abnormal EEG with postictal state. RECOMMENDATIONS: Recommend starting Keppra 500 mg p.o. b.i.d. Also obtain a brain MRI. She does have a low B12 level; we will supplement with parenteral B12. Lc Jones MD, PhD JM/glendy , 02:43 PM , 02:53 PM
--- NOTE | 2018-05-22 15:54 | MG ---
cc: Krupa Elias MD EEG NUMBER: [id number]. REFERRING PHYSICIAN: Dr. Martin referred him. ROOM: 501. INDICATIONS: Awake, drowsy asleep with photic stimulation done. CT: No acute findings except for possible questionable hyperdense distal left M1 segment admitted with change in mental status; baseline is nonverbal, apparently walked with staff members earlier and then was unarousable per EMS. History of mental retardation, hypothyroidism, diabetes. CURRENT MEDICINES: 1. Ampicillin 2. Ceftriaxone. 3. Lovenox. 4. Vancomycin. DESCRIPTION OF RECORD: Significant eye movement artifact documented, but overall background is of 6 Hz. May be a spike and wave discharge noted at epoch 11; looks to be bilateral. Then again spike and wave noted at epoch 25 and continues from epoch 36 off and on in the recording. Photic stimulation is then performed towards the end of the recording with some mild driving response. IMPRESSION: Abnormal EEG due to spike and wave discharges concerning for ongoing epileptiform features. Clinical correlation if not on antiepileptic medication, should be considered with a repeat study. Krupa Elias MD DF/glendy , 03:31 PM , 03:38 PM
--- NOTE | 2018-05-22 15:56 | ECG ---
Date Performed: 05/22/2018 Time Performed: 00:37:38 PTAGE: 58 years EKG: SINUS BRADYCARDIA BORDERLINE LEFT AXIS DEVIATION BORDERLINE ECG Compared to PREVIOUS TRACING , sinus tachycardia is no longer evident. The minimal lateral ST-T wave changes are no longer present. Tracing is now essentially within normal limits. PREVIOUS TRACIN07/2018 00.36 DOCTOR: Janay Farrell Interpretating Date/Time 05/22/2018 15:55:59
[2018-05-22] MEDS: ALPRAZolam 0.25 MG Tablet PO SCH (20:24)
[2018-05-22] MEDS: Temazepam 15 MG Capsule PO SCH (20:24)
[2018-05-22] MEDS ORDERED: Metoprolol Inj 5 MG/5 ML Vial IV.PUSH ONE (21:00)
[2018-05-22] MEDS: Vancomycin Inj 1,250 MG in Sodium Chlor 0.9% Inj 250 ML IV.SIG SCH (21:15)
[2018-05-23] MEDS: KCL 20 mEq/D5W/NaCl 0.45% Inj 1,000 ML IV.CONT SCH ×3 (02:08→20:55)
[2018-05-23 04:11] LABS: Baso % (Auto) 0.5 % (0.0-2.0); Eos # (Auto) 0.1 th/mm3 (0.0-0.4); Eos % (Auto) 1.3 % (0.0-4.0); Hematocrit 36.8 % (35.0-46.0); Hemoglobin 13.1 gm/dL (11.6-15.3); Lymph # (Auto) 1.2 th/mm3 (1.0-4.8); Lymph % (Auto) 16.2 % (9.0-44.0); Mean Corpuscular HGB Conc 35.6 % (32.0-36.0); Mean Platelet Volume 7.5 fL (7.0-11.0); Mono # (Auto) 0.4 th/mm3 (0.0-0.9); Mono % (Auto) 5.7 % (0.0-8.0); Neut # (Auto) 5.9 th/mm3 (1.8-7.7); Neut % (Auto) 76.3 % (16.0-70.0); Platelet Count 181 th/mm3 (150-450); Red Blood Count 4.23 mil/mm3 (4.00-5.30); Red Cell Distribution Width 12.8 % (11.6-17.2); White Blood Count 7.7 th/mm3 (4.0-11.0)
[2018-05-23 04:44] LABS: Alanine Aminotransferase 28 U/L (10-53); Albumin 2.9 g/dL (3.4-5.0); Anion Gap 5 meq/L (5-15); Aspartate Aminotransferase 12 U/L (15-37); Blood Urea Nitrogen 7 mg/dL (7-18); Calcium 8.3 mg/dL (8.5-10.1); Carbon Dioxide 29.7 meq/L (21.0-32.0); Chloride 109 meq/L (98-107); Glomerular Filtration Rate 85 mL/min (>89); Glucose,Random 137 mg/dL (74-106); Potassium 3.8 meq/L (3.5-5.1); Sodium 144 meq/L (136-145)
[2018-05-23 04:46] LABS: Alkaline Phosphatase 74 U/L (45-117); Total Protein 7.2 g/dL (6.4-8.2)
[2018-05-23] MEDS: Sod Chloride 0.9% Inj 1,000 ML IV.CONT SCH ×2 (05:50→20:56)
[2018-05-23] MEDS: Levothyroxine 100 MCG Tablet PO SCH (05:51)
[2018-05-23] MEDS: Insulin NovoLOG Aspart Correctional Sugar Inj SQ SCH ×3 (05:52→19:32)
--- NOTE | 2018-05-23 09:52 | P.PNIM ---
Subjective Interval history: Nursing noted the patient was getting tachycardic last night into 120s. EKG which had been reviewed showed sinus tachycardia which could have been rebound tachycardia from being off of the patient propranolol which I deliberately kept with held due to altered mental status. Patient was given a dose of Lopressor IV this evening. Dayshift nurse reports that the patient did actually get hypothermic last night down to 92 F, unsure of the physician was notified, arvind stinson was applied. Had a thorough discussion with the patient's sister and [id number] who are originally the ones that he declined the lumbar puncture. I informed that it was medically necessary given that she likely has an infection somewhere and is yet to be detected. The conveyed a strong message to keep her more comfortable even if it meant withholding certain medical procedures that were medically necessary to keep her alive. They are open to a palliative care discussion, they reiterate they do not want a lumbar puncture even with sedation, they have brought the DNR forms with him to the hospital. Physical Exam Vital signs: Vital Signs 05/22/18 10:00 05/22/18 11:03 05/22/18 12:00 Temperature 96.8 F L Pulse Rate 74 65 Respiratory Rate 16 Blood Pressure 193/84 H Pulse Oximetry 95 05/22/18 14:00 05/22/18 16:00 05/22/18 18:00 Temperature 96.8 F L Pulse Rate 102 H 112 H 128 H Respiratory Rate 16 Blood Pressure 178/75 H Pulse Oximetry 05/22/18 20:00 05/22/18 20:15 05/22/18 22:00 Temperature Pulse Rate 124 H 102 H Respiratory Rate 15 Blood Pressure 197/87 H Pulse Oximetry 95 95 05/23/18 00:00 05/23/18 02:00 05/23/18 04:00 Temperature 92.8 F L 98.6 F Pulse Rate 84 55 L 112 H Respiratory Rate 13 16 Blood Pressure 127/60 154/66 H Pulse Oximetry 96 95 05/23/18 06:00 05/23/18 07:10 Temperature Pulse Rate 114 H Respiratory Rate Blood Pressure Pulse Oximetry 96 Intake & Output 05/22/18 05/23/18 05/23/18 18:59 06:59 18:59 Intake Total 1440 / 1440 2687.5 / 2687.5 100 / 100 Output Total 1999 / 1999 1200 / 1200 Balance -560 / -560 1487.5 / 1487.5 100 / 100 Weight 69 kg Intake: IV 1200 / 1200 2587.5 / 2587.5 100 / 100 D5W/1/2NS + KCL 20 mEq Inj 1, 1000 / 1000 1000 / 1000 000 ML @ 100 mls/hr IV.CONT . Q10H ZION Rx#:[id number] Ampicillin Inj 1,000 MG In NS 200 / 200 400 / 400 100 / 100 Inj 100 ML @ 400 mls/hr IV.SIG Q4H ZION Rx#:[id number] Vancomycin Inj 1,250 MG In NS 262.5 / 262.5 Inj 250 ML @ 250 mls/hr IV.SIG Q12H ZION Rx#:[id number] Rocephin Inj 2,000 MG In NS Inj 200 / 200 100 ML @ 200 mls/hr IV.SIG Q12H ZION Rx#:[id number] Keppra Inj 500 MG In NS Inj 100 210 / 210 ML @ 400 mls/hr IV.SIG Q12H ZION Rx#:[id number] Oral 240 / 240 100 / 100 Output: Urine 1999 / 1999 1200 / 1200 Stool 0 / 0 0 / 0 Urine/Stool Mix 0 / 0 0 / 0 Other: # Bowel Movements 0 0 # Incontinent Bowel Movements 0 0 Narrative: Patient appears drowsy but opens her eyes to command Does spontaneously move all 4 extremities Is in restraints at this time due to risk of disrupting her devices Heart sounds regular rate and rhythm Clear lungs bilaterally, unlabored breathing - Urinary Catheter Management Straight Cath placed during this visit: yes, but has since been removed by the nurse Reason for continuing: Decision to DC catheter Removal date: 05/22/18 Removal time: 03:10 Results - Labs CBC & Chem 7: 05/23/18 03:16 05/23/18 03:16 Laboratory Results - last 24 hr 05/22/18 05/22/18 05/22/18 07:54 15:38 18:42 WBC RBC Hgb Hct MCV MCH MCHC RDW Plt Count MPV Neut % (Auto) Lymph % (Auto) [place] % (Auto) Eos % (Auto) Baso % (Auto) Neut # (Auto) Lymph # (Auto) [place] # (Auto) Eos # (Auto) Baso # (Auto) WBC Differential Differential Comment Sodium Potassium Chloride Carbon Dioxide Anion Gap BUN Creatinine Estimated GFR POC Glucose 148 H 147 H Random Glucose Calcium Total Bilirubin AST ALT Alkaline Phosphatase Total Protein Albumin Vitamin B12 253 Free T4 0.92 05/22/18 05/23/18 05/23/18 23:25 03:16 03:16 WBC 7.7 RBC 4.23 Hgb 13.1 Hct 36.8 MCV 87.0 MCH 31.0 MCHC 35.6 RDW 12.8 Plt Count 181 MPV 7.5 Neut % (Auto) 76.3 H Lymph % (Auto) 16.2 [place] % (Auto) 5.7 Eos % (Auto) 1.3 Baso % (Auto) 0.5 Neut # (Auto) 5.9 Lymph # (Auto) 1.2 [place] # (Auto) 0.4 Eos # (Auto) 0.1 Baso # (Auto) 0.0 WBC Differential . Differential Comment Auto diff final Sodium 144 Potassium 3.8 Chloride 109 H Carbon Dioxide 29.7 Anion Gap 5 BUN 7 Creatinine 0.71 Estimated GFR 85 L POC Glucose 175 H Random Glucose 137 H Calcium 8.3 L Total Bilirubin 0.3 AST 12 L ALT 28 Alkaline Phosphatase 74 Total Protein 7.2 Albumin 2.9 L Vitamin B12 Free T4 05/23/18 05:45 WBC RBC Hgb Hct MCV MCH MCHC RDW Plt Count MPV Neut % (Auto) Lymph % (Auto) [place] % (Auto) Eos % (Auto) Baso % (Auto) Neut # (Auto) Lymph # (Auto) [place] # (Auto) Eos # (Auto) Baso # (Auto) WBC Differential Differential Comment Sodium Potassium Chloride Carbon Dioxide Anion Gap BUN Creatinine Estimated GFR POC Glucose 156 H Random Glucose Calcium Total Bilirubin AST ALT Alkaline Phosphatase Total Protein Albumin Vitamin B12 Free T4 Assessment and Plan - Plan 58-year-old white female admitted with acute encephalopathy, concern for possible meningitis Acute encephalopathy Possibly secondary meningitis and/or seizure activity Blood cultures ordered last night, lumbar puncture declined by family, please see subjective box -We will broaden antibiotic coverage by replacing Rocephin with cefepime, doubling ampicillin dose, continue vancomycin -Urine culture pending -Trend CBC -Head imaging overall unremarkable, unable to obtain MRI due to poor cooperation Seizure activity -EEG suggestive of epileptiform activity -Keppra by neurology Hypothyroidism Severe mental retardation since -Noted to have significantly elevated TSH, will attempt to restart oral Synthroid today Diet as tolerated Discharge Planning: Palliative care has been notified, patient has been switched over to DNR given that they have provided forms from home. Consult for palliative care in place. Patient sister has been notified that she could deteriorate further without further appropriate workup, they vocalized understanding.
[2018-05-23] MEDS: ALPRAZolam 0.25 MG Tablet PO SCH ×2 (11:09→20:56)
[2018-05-23] MEDS: Vancomycin Inj 1,250 MG in Sodium Chlor 0.9% Inj 250 ML IV.SIG SCH ×2 (11:10→20:56)
--- NOTE | 2018-05-23 11:31 | P.CONPAL ---
Consult Service: Palliative Care Requesting Physician: Fredy Cunningham Reason for Consult: a. To assist with evaluation and management of symptoms including: Pain, seizures. b. To assist medical decision maker(s) with: better understanding of current medical conditions; weighing benefits/burdens of medical treatment options; making medical treatment decisions. Primary Care Provider: UNKNOWN History of Present Illness History of Present Illness: Ms. Henriquez is a 58-year-old female with severe intellectual disability since , diabetes, hypothyroidism, and osteoarthritis who presented via EMS to ED on 05/22/18 for evaluation of altered mental status from baseline. Patient is a resident of [facility], nonverbal at baseline. Patient was found not arousable, minimally responsive to noxious stimuli. She received Narcan while on route to ED. ED workup revealing WBC of 5.1, Hgb 13.8, BUN/creatinine 7/ 0.71. UA positive for nitrates and large leukocytes. Chest x-ray and head CT negative for acute process. CTA head negative. CTA of neck revealing plaque at the category [place] region worse on the left side without significant stenosis. Patient admitted for further monitoring and management. Neurology, Dr. Jones consulted on 05/22/18 for evaluation of unresponsiveness. EEG revealing postictal state. Patient was placed on Keppra twice daily. Clinical course complicated by hypothermia with temperature down to 92 Fahrenheit, bear hugger was applied. Concerns of meningitis. Patient's family has declined lumbar puncture or additional invasive interventions. Palliative care has been consulted for further clarifications of goals of care. Patient seen in medical ICU, resting in bed in no acute distress. Eyes closed, briefly opening eyes to verbal stimuli. Not attempting to communicate or following simple commands. Most recent temperature 98.6, remains tachycardic with heart rate in the mid 110s. Hypertensive with SBP in the 170s. Currently tolerating room air with oxygen saturation in the mid 90s. Patient's Sister Ambar Haywood and her Adán at bedside. In this first visit introduced the role of palliative care in advanced illness in regards to symptom management as well as goals of care and advanced care planning. Sister tells me that she is patient's legal guardian and healthcare surrogate decision- maker. Patient residing and assisted living facility since 2014, prior to that patient residing with her mother who in 2014. Patient is single, no children, deemed incapacitated given severe intellectual disability. Sister stating that she is well aware of patient's life expectancy given her severe disabilities, reports that she was told that patient "would not survive past her 50th birthday". Reviewed clinical course and current medical management. Reviewed current concerns given hypothermia, lethargy and seizure activity. Sister reiterating comfort-directed goals, not wishing for any invasive interventions or procedures. Patient is a DNR/DNI. Sister electing to transition patient to comfort-directed care/allow natural given poor quality of life at baseline. Hospice philosophy and benefits introduced, sister familiar as her mother under hospice services. Sister considering hospice at this time, likely transfer patient to hospice care center for symptom management and end-of-life care. Function/Cognitive Trajectory: Patient with severe intellectual disability since . Resident of long-term facility since 2014, residing with her mother prior to that. Patient requires assistance with all ADLs besides feedings. Limited ambulation in the setting of cerebral palsy as per sister. Patient nonverbal, limited communication of needs via signs. History of frequent falls. Review of Systems unobtainable due to mental condition PMFSH - History History Provided By: Family Member, Medical Record - Medical History Medical History: Medical History (Last Updated 05/23/18 @ 11:15 by Mar Lazaro APRN) Anxiety Cerebral palsy Osteoarthritis Seasonal allergic rhinitis Diabetes Hypothyroidism Intellectual disability - Family History Family History: Family History (Last Updated 05/23/18 @ 11:15 by Mar Lazaro APRN) Other Blindness Diabetes - Social History I have reviewed the patient's Social History: Yes - Tobacco History Second Hand Smoke Exposure: No Tobacco Use In Past 30 Days: No Smoking Status: Never smoker - Alcohol History How Often Do You Have a Drink Containing Alcohol: Never - Substance Use History Substance History: No History of Abuse, Unable to Obtain - Travel History Recent Travel in the [place] Within the Last 8 Weeks: No Recent Travel Out of the Country Within the Last 8 Weeks: No - Immunization History Tetanus Immunization: <5 Years Hx Influenza Vaccine This Season: Unable to Assess Medications and Allergies Active Medications: Active Medications Acetaminophen (Tylenol) 650 mg PO Q4H PRN PRN Reason: Temp > 100.4 Alprazolam (Xanax) 0.25 mg PO BID [facility] Last Admin: 05/22/18 20:24 Dose: 0.25 mg Dextrose (D50w Vial) 50 ml IV.PUSH UNSCH PRN PRN Reason: PER HYPOGLYCEMIA PROTOCOL Enoxaparin Sodium (Lovenox Inj) 40 mg SQ Q24H [facility] Last Admin: 05/22/18 03:31 Dose: 40 mg Glucagon (Glucagon Inj) 1 mg OTHER PRN PRN PRN Reason: for Hypoglycemia Protocol Sodium Chloride (Ns Inj) 1,000 mls @ 70 mls/hr IV.CONT .[id number] [facility] Last Admin: 05/23/18 05:50 Dose: Not Given Potassium Chloride/Dextrose/Sod Cl (D5w/1/2ns + Kcl 20 Meq Inj) 1,000 mls @ 100 mls/hr IV.CONT .Q10H [facility] Last Admin: 05/23/18 02:08 Dose: 100 mls/hr Vancomycin HCl 1,250 mg/ (Sodium Chloride) 262.5 mls @ 250 mls/hr IV.SIG Q12H [facility] Last Infusion: 05/22/18 22:47 Dose: Infused Levetiracetam 500 mg/ Sodium (Chloride) 105 mls @ 400 mls/hr IV.SIG Q12H [facility] Last Infusion: 05/23/18 03:24 Dose: Infused Cefepime HCl 2,000 mg/ Sodium (Chloride) 100 mls @ 200 mls/hr IV.SIG Q8H [facility] Ampicillin Sodium 2,000 mg/ (Sodium Chloride) 100 mls @ 400 mls/hr IV.SIG Q4H [facility] Insulin Aspart (Novolog Insulin Correctional Sugar Inj) 0 unit SQ Q6HR [facility]; Protocol Last Admin: 05/23/18 05:52 Dose: Not Given Lactobacillus Acidophilus (Lactinex Pkt) 1 gm PO TID [facility] Last Admin: 05/22/18 19:47 Dose: Not Given Levothyroxine Sodium (Synthroid) 100 mcg PO DAILY@0600 [facility] Last Admin: 05/23/18 05:51 Dose: 100 mcg Miscellaneous Information ([facility] Ordered Lab Info) 0 each OTHER ONCE ONE Stop: 05/24/18 07:46 Ondansetron HCl (Zofran Inj) 4 mg IV.PUSH Q6H PRN PRN Reason: NAUSEA OR VOMITING Pharmacy Profile Note (Vancomycin Consult Pharmacy) 1 each OTHER UNSCH PRN PRN Reason: Pharmacy to dose Sodium Chloride (Ns Flush) 2 ml IV.FLUSH BID [facility] Last Admin: 05/22/18 20:24 Dose: 2 ml Sodium Chloride (Ns Flush) 2 ml IV.FLUSH PRN PRN PRN Reason: FLUSH AFTER USING IV ACCESS Temazepam (Restoril) 15 mg PO HS [facility] Last Admin: 05/22/18 20:24 Dose: 15 mg Allergies Allergy/AdvReac Type Severity Reaction Status Date / Time chocolate flavor Allergy Severe Hives Unverified 05/22/18 03:16 Home Medications Medication Instructions Recorded Confirmed Type acetaminophen 500 mg PO Q6H PRN MDD 100mg 05/22/18 05/22/18 History alprazolam 0.25 mg PO BID 05/22/18 05/22/18 History aspirin [Aspirin Low Dose] 81 mg PO DAILY 05/22/18 05/22/18 History cetirizine 10 mg PO DAILY 05/22/18 05/22/18 History cholecalciferol (vitamin D3) 50,000 unit PO WEEKLY 05/22/18 05/22/18 History [Vitamin D3] docusate sodium 100 mg PO DAILY 05/22/18 05/22/18 History ferrous sulfate 325 mg PO BID 05/22/18 05/22/18 History fexofenadine 180 mg PO DAILY 05/22/18 05/22/18 History guaifenesin [Tussin] 100 mg PO Q4HR 05/22/18 05/22/18 History levothyroxine 100 mcg PO DAILY 05/22/18 05/22/18 History loperamide 2 mg PO DAILY 05/22/18 05/22/18 History promethazine 25 mg PO Q6H PRN MDD 100 05/22/18 05/22/18 History propranolol 10 mg PO BID 05/22/18 05/22/18 History temazepam 15 mg PO HS 05/22/18 05/22/18 History Advance Directives Healthcare Surrogate: Yes Physical Exam Vital Signs: Vital Signs - 24 hr 05/22/18 11:03 05/22/18 12:00 05/22/18 14:00 Temperature 96.8 F L Pulse Rate 65 102 H Respiratory Rate 16 Blood Pressure 193/84 H Pulse Oximetry 95 05/22/18 16:00 05/22/18 18:00 05/22/18 20:00 Temperature 96.8 F L Pulse Rate 112 H 128 H 124 H Respiratory Rate 16 15 Blood Pressure 178/75 H 197/87 H Pulse Oximetry 95 05/22/18 20:15 05/22/18 22:00 05/23/18 00:00 Temperature 92.8 F L Pulse Rate 102 H 84 Respiratory Rate 13 Blood Pressure 127/60 Pulse Oximetry 95 96 05/23/18 02:00 05/23/18 04:00 05/23/18 06:00 Temperature 98.6 F Pulse Rate 55 L 112 H 114 H Respiratory Rate 16 Blood Pressure 154/66 H Pulse Oximetry 95 05/23/18 07:10 Temperature Pulse Rate Respiratory Rate Blood Pressure Pulse Oximetry 96 I&O: Intake & Output 05/21/18 05/22/18 05/23/18 05/24/18 06:59 06:59 06:59 06:59 Intake Total 100 / 100 4127.5 / 4127.5 100 / 100 Output Total 150 / 150 3200 / 3200 Balance -50 / -50 927.5 / 927.5 100 / 100 Weight 69.5 kg 69 kg Physical Exam: CONSTITUTIONAL/GENERAL: This is an adequately nourished patient, in no apparent distress. TUBES/LINES/DRAINS: PIV, bilateral soft wrist restraints. SKIN: No jaundice, rashes, or lesions. Ecchymoses on upper extremities. No wounds seen anteriorly. Skin temperature appropriate. Not diaphoretic. HEAD: Atraumatic. Normocephalic. EYES: Pupils equal and round and reactive. No scleral icterus. No injection or drainage. ENT: Hearing grossly normal. Nose without bleeding or purulent drainage. Moist oral mucosa. NECK: Trachea midline. Supple, nontender. CARDIOVASCULAR: Tachycardic with heart rate in the mid 110s. Peripheral pulses symmetric. RESPIRATORY/CHEST: Symmetric, unlabored respirations. Clear to auscultation. Breath sounds equal bilaterally. No wheezes, rales, or rhonchi. GASTROINTESTINAL: Abdomen soft, non-tender, nondistended. No guarding. Bowel sounds present. GENITOURINARY: Without palpable bladder distension. MUSCULOSKELETAL: Extremities without clubbing, cyanosis, or edema. No mottling or clubbing. LYMPHATICS: No palpable cervical or supraclavicular adenopathy. NEUROLOGICAL: Obtunded, briefly opening eyes to tactile stimuli. Nonverbal, not following simple commands. PSYCHIATRIC: Unable to assess given the above. Appears calm. Diagnostic Tests Laboratory: Laboratory Results - last 72 hr 05/22/18 05/22/18 05/22/18 00:25 00:25 00:35 WBC RBC Hgb POC Hgb (Calc) 13.6 Hct POC Hct 40.0 MCV MCH MCHC RDW Plt Count MPV Neut % (Auto) Lymph % (Auto) [place] % (Auto) Eos % (Auto) Baso % (Auto) Neut # (Auto) Lymph # (Auto) [place] # (Auto) Eos # (Auto) Baso # (Auto) WBC Differential Differential Comment PT 10.1 INR 1.0 APTT 21.6 L Fibrinogen 216 L Puncture Site Patient Temperature O2 Saturation ABG pH ABG pCO2 ABG pO2 ABG HCO3 ABG O2 Content ABG Base Excess ABG Methemoglobin Segun Test Hemoglobin Carboxyhemoglobin Inspired O2 Critical Value POC Sodium 144 Sodium POC Potassium 4.5 Potassium POC Chloride 105 Chloride Carbon Dioxide Anion Gap POC BUN 27 H BUN Creatinine POC Creatinine 0.7 Estimated GFR POC Glucose 145 H Random Glucose Calcium Total Bilirubin AST ALT Alkaline Phosphatase Ammonia Total Creatine Kinase 88 Troponin I Less than 0.02 L Total Protein Albumin Vitamin B12 TSH Free T4 Urine Color Urine Clarity Urine pH Ur Specific [place] Urine Protein Urine Glucose (UA) Urine Ketones Urine Occult Blood Urine Nitrate Urine Bilirubin Urine Urobilinogen Ur Leukocyte Esterase Urine RBC Urine WBC Urine WBC Clumps Ur Squamous Epith Cells Urine Bacteria Urine Mucus Micro UA Comment Ur Microscopic Review Urine Culture Comments Nasal Screen MRSA (PCR) Urine Opiates Screen Ur Barbiturates Screen Ur Amphetamines Screen U Benzodiazepines Scrn Urine Cocaine Screen U Cannabinoids Screen Blood Type O Positive Blood Type Recheck Required Antibody Screen Negative 05/22/18 05/22/18 05/22/18 00:35 01:10 03:00 WBC 5.1 RBC 4.51 Hgb 13.8 POC Hgb (Calc) Hct 40.4 POC Hct MCV 89.4 MCH 30.5 MCHC 34.1 RDW 13.2 Plt Count 172 MPV 7.9 Neut % (Auto) 51.7 Lymph % (Auto) 33.4 [place] % (Auto) 9.3 H Eos % (Auto) 4.7 H Baso % (Auto) 0.9 Neut # (Auto) 2.6 Lymph # (Auto) 1.7 [place] # (Auto) 0.5 Eos # (Auto) 0.2 Baso # (Auto) 0.0 WBC Differential . Differential Comment Auto diff final PT INR APTT Fibrinogen Puncture Site Right brachial Patient Temperature 98.6 O2 Saturation 93 ABG pH 7.35 L ABG pCO2 56 H* ABG pO2 78 ABG HCO3 30 H ABG O2 Content 16.5 ABG Base Excess 4.5 H ABG Methemoglobin 0.7 Segun Test Present Hemoglobin 12.6 Carboxyhemoglobin 1.1 Inspired O2 21 Critical Value Yes POC Sodium Sodium POC Potassium Potassium POC Chloride Chloride Carbon Dioxide Anion Gap POC BUN BUN Creatinine POC Creatinine Estimated GFR POC Glucose Random Glucose Calcium Total Bilirubin AST ALT Alkaline Phosphatase Ammonia Total Creatine Kinase Troponin I Total Protein Albumin Vitamin B12 TSH 18.300 H Free T4 Urine Color Urine Clarity Urine pH Ur Specific [place] Urine Protein Urine Glucose (UA) Urine Ketones Urine Occult Blood Urine Nitrate Urine Bilirubin Urine Urobilinogen Ur Leukocyte Esterase Urine RBC Urine WBC Urine WBC Clumps Ur Squamous Epith Cells Urine Bacteria Urine Mucus Micro UA Comment Ur Microscopic Review Urine Culture Comments Nasal Screen MRSA (PCR) Urine Opiates Screen Ur Barbiturates Screen Ur Amphetamines Screen U Benzodiazepines Scrn Urine Cocaine Screen U Cannabinoids Screen Blood Type Blood Type Recheck Antibody Screen 05/22/18 05/22/18 05/22/18 03:01 03:01 04:30 WBC RBC Hgb POC Hgb (Calc) Hct POC Hct MCV MCH MCHC RDW Plt Count MPV Neut % (Auto) Lymph % (Auto) [place] % (Auto) Eos % (Auto) Baso % (Auto) Neut # (Auto) Lymph # (Auto) [place] # (Auto) Eos # (Auto) Baso # (Auto) WBC Differential Differential Comment PT INR APTT Fibrinogen Puncture Site Patient Temperature O2 Saturation ABG pH ABG pCO2 ABG pO2 ABG HCO3 ABG O2 Content ABG Base Excess ABG Methemoglobin Segun Test Hemoglobin Carboxyhemoglobin Inspired O2 Critical Value POC Sodium Sodium POC Potassium Potassium POC Chloride Chloride Carbon Dioxide Anion Gap POC BUN BUN Creatinine POC Creatinine Estimated GFR POC Glucose Random Glucose Calcium Total Bilirubin AST ALT Alkaline Phosphatase Ammonia Total Creatine Kinase Troponin I Total Protein Albumin Vitamin B12 TSH Free T4 Urine Color Yellow Urine Clarity Cloudy H Urine pH 5.0 Ur Specific [place] 1.042 H Urine Protein 30 H Urine Glucose (UA) Negative Urine Ketones Negative Urine Occult Blood Small H Urine Nitrate Positive H Urine Bilirubin Negative Urine Urobilinogen Less than 2 Ur Leukocyte Esterase Large H Urine RBC 12 H Urine WBC Urine WBC Clumps Many H Ur Squamous Epith Cells 4 Urine Bacteria Many H Urine Mucus Few H Micro UA Comment Cath-culture ind Ur Microscopic Review Not Reportable Urine Culture Comments Cath-cult indicated Nasal Screen MRSA (PCR) Not detected Urine Opiates Screen Neg Ur Barbiturates Screen Neg Ur Amphetamines Screen Neg U Benzodiazepines Scrn Pos H Urine Cocaine Screen Neg U Cannabinoids Screen Neg Blood Type Blood Type Recheck Antibody Screen 05/22/18 05/22/18 05/22/18 05:45 06:42 07:54 WBC RBC Hgb POC Hgb (Calc) Hct POC Hct MCV MCH MCHC RDW Plt Count MPV Neut % (Auto) Lymph % (Auto) [place] % (Auto) Eos % (Auto) Baso % (Auto) Neut # (Auto) Lymph # (Auto) [place] # (Auto) Eos # (Auto) Baso # (Auto) WBC Differential Differential Comment PT 10.3 INR 1.0 APTT Fibrinogen Puncture Site Patient Temperature O2 Saturation ABG pH ABG pCO2 ABG pO2 ABG HCO3 ABG O2 Content ABG Base Excess ABG Methemoglobin Segun Test Hemoglobin Carboxyhemoglobin Inspired O2 Critical Value POC Sodium Sodium POC Potassium Potassium POC Chloride Chloride Carbon Dioxide Anion Gap POC BUN BUN Creatinine POC Creatinine Estimated GFR POC Glucose 171 H Random Glucose Calcium Total Bilirubin AST ALT Alkaline Phosphatase Ammonia Less than 10 L Total Creatine Kinase Troponin I Total Protein Albumin Vitamin B12 TSH Free T4 Urine Color Urine Clarity Urine pH Ur Specific [place] Urine Protein Urine Glucose (UA) Urine Ketones Urine Occult Blood Urine Nitrate Urine Bilirubin Urine Urobilinogen Ur Leukocyte Esterase Urine RBC Urine WBC Urine WBC Clumps Ur Squamous Epith Cells Urine Bacteria Urine Mucus Micro UA Comment Ur Microscopic Review Urine Culture Comments Nasal Screen MRSA (PCR) Urine Opiates Screen Ur Barbiturates Screen Ur Amphetamines Screen U Benzodiazepines Scrn Urine Cocaine Screen U Cannabinoids Screen Blood Type Blood Type Recheck Antibody Screen 05/22/18 05/22/18 05/22/18 07:54 08:50 15:38 WBC RBC Hgb POC Hgb (Calc) Hct POC Hct MCV MCH MCHC RDW Plt Count MPV Neut % (Auto) Lymph % (Auto) [place] % (Auto) Eos % (Auto) Baso % (Auto) Neut # (Auto) Lymph # (Auto) [place] # (Auto) Eos # (Auto) Baso # (Auto) WBC Differential Differential Comment PT INR APTT Fibrinogen Puncture Site Right radial Patient Temperature 98.6 O2 Saturation 95 ABG pH 7.38 ABG pCO2 48 H ABG pO2 95 ABG HCO3 28 H ABG O2 Content 18.4 ABG Base Excess 3.5 H ABG Methemoglobin 1.7 Segun Test Present Hemoglobin 13.8 Carboxyhemoglobin 0.9 Inspired O2 Critical Value No POC Sodium Sodium POC Potassium Potassium POC Chloride Chloride Carbon Dioxide Anion Gap POC BUN BUN Creatinine POC Creatinine Estimated GFR POC Glucose 148 H Random Glucose Calcium Total Bilirubin AST ALT Alkaline Phosphatase Ammonia Total Creatine Kinase Troponin I Total Protein Albumin Vitamin B12 253 TSH Free T4 0.92 Urine Color Urine Clarity Urine pH Ur Specific [place] Urine Protein Urine Glucose (UA) Urine Ketones Urine Occult Blood Urine Nitrate Urine Bilirubin Urine Urobilinogen Ur Leukocyte Esterase Urine RBC Urine WBC Urine WBC Clumps Ur Squamous Epith Cells Urine Bacteria Urine Mucus Micro UA Comment Ur Microscopic Review Urine Culture Comments Nasal Screen MRSA (PCR) Urine Opiates Screen Ur Barbiturates Screen Ur Amphetamines Screen U Benzodiazepines Scrn Urine Cocaine Screen U Cannabinoids Screen Blood Type Blood Type Recheck Antibody Screen 05/22/18 05/22/18 05/23/18 18:42 23:25 03:16 WBC 7.7 RBC 4.23 Hgb 13.1 POC Hgb (Calc) Hct 36.8 POC Hct MCV 87.0 MCH 31.0 MCHC 35.6 RDW 12.8 Plt Count 181 MPV 7.5 Neut % (Auto) 76.3 H Lymph % (Auto) 16.2 [place] % (Auto) 5.7 Eos % (Auto) 1.3 Baso % (Auto) 0.5 Neut # (Auto) 5.9 Lymph # (Auto) 1.2 [place] # (Auto) 0.4 Eos # (Auto) 0.1 Baso # (Auto) 0.0 WBC Differential . Differential Comment Auto diff final PT INR APTT Fibrinogen Puncture Site Patient Temperature O2 Saturation ABG pH ABG pCO2 ABG pO2 ABG HCO3 ABG O2 Content ABG Base Excess ABG Methemoglobin Segun Test Hemoglobin Carboxyhemoglobin Inspired O2 Critical Value POC Sodium Sodium POC Potassium Potassium POC Chloride Chloride Carbon Dioxide Anion Gap POC BUN BUN Creatinine POC Creatinine Estimated GFR POC Glucose 147 H 175 H Random Glucose Calcium Total Bilirubin AST ALT Alkaline Phosphatase Ammonia Total Creatine Kinase Troponin I Total Protein Albumin Vitamin B12 TSH Free T4 Urine Color Urine Clarity Urine pH Ur Specific [place] Urine Protein Urine Glucose (UA) Urine Ketones Urine Occult Blood Urine Nitrate Urine Bilirubin Urine Urobilinogen Ur Leukocyte Esterase Urine RBC Urine WBC Urine WBC Clumps Ur Squamous Epith Cells Urine Bacteria Urine Mucus Micro UA Comment Ur Microscopic Review Urine Culture Comments Nasal Screen MRSA (PCR) Urine Opiates Screen Ur Barbiturates Screen Ur Amphetamines Screen U Benzodiazepines Scrn Urine Cocaine Screen U Cannabinoids Screen Blood Type Blood Type Recheck Antibody Screen 05/23/18 05/23/18 03:16 05:45 WBC RBC Hgb POC Hgb (Calc) Hct POC Hct MCV MCH MCHC RDW Plt Count MPV Neut % (Auto) Lymph % (Auto) [place] % (Auto) Eos % (Auto) Baso % (Auto) Neut # (Auto) Lymph # (Auto) [place] # (Auto) Eos # (Auto) Baso # (Auto) WBC Differential Differential Comment PT INR APTT Fibrinogen Puncture Site Patient Temperature O2 Saturation ABG pH ABG pCO2 ABG pO2 ABG HCO3 ABG O2 Content ABG Base Excess ABG Methemoglobin Segun Test Hemoglobin Carboxyhemoglobin Inspired O2 Critical Value POC Sodium Sodium 144 POC Potassium Potassium 3.8 POC Chloride Chloride 109 H Carbon Dioxide 29.7 Anion Gap 5 POC BUN BUN 7 Creatinine 0.71 POC Creatinine Estimated GFR 85 L POC Glucose 156 H Random Glucose 137 H Calcium 8.3 L Total Bilirubin 0.3 AST 12 L ALT 28 Alkaline Phosphatase 74 Ammonia Total Creatine Kinase Troponin I Total Protein 7.2 Albumin 2.9 L Vitamin B12 TSH Free T4 Urine Color Urine Clarity Urine pH Ur Specific [place] Urine Protein Urine Glucose (UA) Urine Ketones Urine Occult Blood Urine Nitrate Urine Bilirubin Urine Urobilinogen Ur Leukocyte Esterase Urine RBC Urine WBC Urine WBC Clumps Ur Squamous Epith Cells Urine Bacteria Urine Mucus Micro UA Comment Ur Microscopic Review Urine Culture Comments Nasal Screen MRSA (PCR) Urine Opiates Screen Ur Barbiturates Screen Ur Amphetamines Screen U Benzodiazepines Scrn Urine Cocaine Screen U Cannabinoids Screen Blood Type Blood Type Recheck Antibody Screen Result Diagrams: 05/23/18 03:16 05/23/18 03:16 Patient/Family Conference Present at Family Conference: Sister/guardian Ambar Haywood and her Adán. Family Conference Time: 42 Family Conference Location: Bedside Issues Discussed: * Palliative care role, purpose, approach * Additional medical, psychosocial, and spiritual history * Patients general health, functional status, and cognitive changes in the months leading up to the current hospitalization * Patient/family understanding of the current medical problems * Patient/family understanding of prognosis * Patients goals of care as best understood from advance directives and/or conversations and/or values * Current medical treatment options and benefits/burdens of those options * Likely scenarios comparing ongoing aggressive care with a transition to comfort measures only * Questions answered to the best of my ability * Palliative care contact information provided * Hospice philosophy and benefits * Risks, benefits and limitations of CPR, intubation and mechanical ventilation Assessment and Plan - Disease Oriented Problem List (1) Acute encephalopathy (2) Seizure (3) Hypothyroidism (4) Hypothermia (5) Severe intellectual disability (6) Cerebral palsy - Symptom Scale (1) Anxiety 0-10 Scale: Unable to quantify (2) Pain 0-10 Scale: Unable to quantify Pertinent Non-Medical Issues: Psychosocial: Patient with severe intellectual disability since . Resident of long-term facility. Her sister is her legal guardian. Never , no children. Patient has 1 sister and 2 brothers by the name of Shady and Ed Spiritual: No episcopal affiliation. Legal: Legal guardianship. Ethical issues impacting care: No ethical issues identified. Important Contacts: Sister/guardian/healthcare surrogate: Ambar Gomes Prognosis: Ms. Henriquez is a 58-year-old female with a medical history significant for severe intellectual disability and cerebral palsy since . Patient resident of a long-term facility, depending on others for care, nonverbal. Presented to ED for evaluation of altered mental status from baseline. She was found hypothermic, obtunded with seizure activity on EEG. Concerns for meningitis. Family declined any invasive procedures or interventions given poor quality of life at baseline. Overall prognosis for survival is poor, likely days if illness run its natural course. Patient appears hospice appropriate. Code Status: No Code DNR Plan: * CODE STATUS: DNR/DNI. Court order to designate healthcare surrogate and DO NOT RESUSCITATE order in chart. * HEALTHCARE DECISION-MAKING: Patient lacks medical decision-making capacity in the setting of severe intellectual disability. Court order to designate healthcare surrogate decision making in file, patient's Sister Ambar Gomes listed as a guardian/healthcare surrogate decision-maker. She is at bedside and fully accepts this role. Alternate surrogate is patient's brother Timmy Henriquez. * GOALS OF CARE: Patient's sister Ambar Gomes acting as healthcare surrogate decision-maker is electing to transition patient to comfort-directed care with hospice given poor quality of life at baseline. Patient with severe intellectual disability, cerebral palsy since . Hospice referral has been made, goal is to transfer patient to hospice care center for symptom management and end-of-life care. * SYMPTOMS: = Anxiety: Chronic. Outpatient regimen of Xanax 0.25 twice daily, she has continued with same dose. = Seizure: Seizure activity on EEG. Currently on Keppra twice daily, neurology following. * Case discussed with hospice social worker. * Palliative care contact information has been provided to patient's family. * Palliative care will continue to follow-up for further clarification of goals of care as patient's clinical course continues to evolve. Time Spent Total Floor Time (mins): 63 (Total time to include review on summarization of available medical records to include prior ED visit, physical exam, goals of care conversation with patient's guardian/healthcare surrogate, case discussion with attending, bedside RN and hospice social worker.) >50% Time in Counseling or Coordination of Care: Yes (Total visit time = 63 minutes; > 50% spent counseling/coordinating care) Appreciation Thank you for the opportunity to participate in the care of Floresita Henriquez. Attestation Attestation: To help prompt me to consider important information that might be impacting today's encounter and assessment, information from prior notes written by myself or my colleagues may have been "brought forward" into today's note. My signature on this note, however, is an attestation that I personally performed the exam, history, and/or decision-making noted today, and, unless otherwise indicated, the interactions with patient, family, and staff as well as the review of records all occurred today. I also attest that the listed assessment and stated plan reflect my best clinical judgment today based on the combination of historical information, prior notes, and today's exam/ interactions. When time spent is documented, it refers only to time spent today by the signer, or if indicated, combined time spent today by collaborating physician/nurse practitioner.
--- NOTE | 2018-05-23 18:24 | ECG ---
Date Performed: 05/22/2018 Time Performed: 19:39:22 PTAGE: 58 years EKG: Sinus tachycardia Left axis deviation ST junctional depression is nonspecific Compared to p revious tracing, sinus rate is faster Borderline ECG NO PREVIOUS TRACING DOCTOR: Srinivasan Rubio Interpretating Date/Time 05/23/2018 18:24:44
--- NOTE | 2018-05-23 18:50 | P.PNNEU ---
Subjective Subjective Comments: No new sx. No SZ. On keppra Active Medications: Active Medications Acetaminophen (Tylenol) 650 mg PO Q4H PRN PRN Reason: Temp > 100.4 Alprazolam (Xanax) 0.25 mg PO BID [facility] Last Admin: 05/23/18 11:09 Dose: 0.25 mg Dextrose (D50w Vial) 50 ml IV.PUSH UNSCH PRN PRN Reason: PER HYPOGLYCEMIA PROTOCOL Enalaprilat (Vasotec Inj) 1.25 mg IV.PUSH Q6H PRN PRN Reason: SBP>160, DBP>90 Last Admin: 05/23/18 15:45 Dose: 1.25 mg Enoxaparin Sodium (Lovenox Inj) 40 mg SQ Q24H [facility] Last Admin: 05/22/18 03:31 Dose: 40 mg Glucagon (Glucagon Inj) 1 mg OTHER PRN PRN PRN Reason: for Hypoglycemia Protocol Sodium Chloride (Ns Inj) 1,000 mls @ 70 mls/hr IV.CONT .[id number] [facility] Last Admin: 05/23/18 05:50 Dose: Not Given Potassium Chloride/Dextrose/Sod Cl (D5w/1/2ns + Kcl 20 Meq Inj) 1,000 mls @ 100 mls/hr IV.CONT .Q10H [facility] Last Admin: 05/23/18 11:50 Dose: 100 mls/hr Vancomycin HCl 1,250 mg/ (Sodium Chloride) 262.5 mls @ 250 mls/hr IV.SIG Q12H [facility] Last Infusion: 05/23/18 12:13 Dose: Infused Levetiracetam 500 mg/ Sodium (Chloride) 105 mls @ 400 mls/hr IV.SIG Q12H [facility] Last Infusion: 05/23/18 15:02 Dose: Infused Cefepime HCl 2,000 mg/ Sodium (Chloride) 100 mls @ 200 mls/hr IV.SIG Q8H [facility] Last Infusion: 05/23/18 18:22 Dose: Infused Ampicillin Sodium 2,000 mg/ (Sodium Chloride) 100 mls @ 400 mls/hr IV.SIG Q4H [facility] Last Infusion: 05/23/18 18:07 Dose: Infused Insulin Aspart (Novolog Insulin [employer] Sugar Inj) 0 unit SQ Q6HR [facility]; Protocol Last Admin: 05/23/18 14:47 Dose: Not Given Lactobacillus Acidophilus (Lactinex Pkt) 1 gm PO TID [facility] Last Admin: 05/23/18 17:52 Dose: 1 gm Levothyroxine Sodium (Synthroid) 100 mcg PO DAILY@0600 [facility] Last Admin: 05/23/18 05:51 Dose: 100 mcg Miscellaneous Information ([facility] Ordered Lab Info) 0 each OTHER ONCE ONE Stop: 05/24/18 07:46 Ondansetron HCl (Zofran Inj) 4 mg IV.PUSH Q6H PRN PRN Reason: NAUSEA OR VOMITING Pharmacy Profile Note (Vancomycin Consult Pharmacy) 1 each OTHER UNSCH PRN PRN Reason: Pharmacy to dose Sodium Chloride (Ns Flush) 2 ml IV.FLUSH BID [facility] Last Admin: 05/23/18 11:09 Dose: 2 ml Sodium Chloride (Ns Flush) 2 ml IV.FLUSH PRN PRN PRN Reason: FLUSH AFTER USING IV ACCESS Temazepam (Restoril) 15 mg PO HS [facility] Last Admin: 05/22/18 20:24 Dose: 15 mg Allergies/Adverse Reactions: Allergies Allergy/AdvReac Type Severity Reaction Status Date / Time chocolate flavor Allergy Severe Hives Unverified 05/22/18 03:16 Physical Exam Vital signs: Vital Signs 05/22/18 20:00 05/22/18 20:15 05/22/18 22:00 Temperature Pulse Rate 124 H 102 H Respiratory Rate 15 Blood Pressure 197/87 H Pulse Oximetry 95 95 05/23/18 00:00 05/23/18 02:00 05/23/18 04:00 Temperature 92.8 F L 98.6 F Pulse Rate 84 55 L 112 H Respiratory Rate 13 16 Blood Pressure 127/60 154/66 H Pulse Oximetry 96 95 05/23/18 06:00 05/23/18 07:10 05/23/18 08:00 Temperature 100.0 F H Pulse Rate 114 H 105 H Respiratory Rate 15 Blood Pressure 177/76 H Pulse Oximetry 96 96 05/23/18 10:00 05/23/18 12:00 05/23/18 14:00 Temperature 98.4 F Pulse Rate 101 H 104 H 105 H Respiratory Rate 16 Blood Pressure 186/81 H Pulse Oximetry 05/23/18 16:00 05/23/18 18:00 05/23/18 18:25 Temperature 98.0 F Pulse Rate 95 H 96 H Respiratory Rate 16 Blood Pressure 163/71 H Pulse Oximetry 95 99 Intake & Output 05/22/18 05/23/18 05/23/18 18:59 06:59 18:59 Intake Total 1440 / 1440 2687.5 / 2687.5 2567.5 / 2567.5 Output Total 1999 1200 / 1200 Balance -560 / -560 1487.5 / 1487.5 2567.5 / 2567.5 Weight 69 kg Intake: IV 1200 / 1200 2587.5 / 2587.5 1967.5 / 1967.5 D5W/1/2NS + KCL 20 mEq Inj 1, 1000 / 1000 1000 / 1000 1000 / 1000 000 ML @ 100 mls/hr IV.CONT . Q10H [facility] Rx#:[id number] Ampicillin Inj 1,000 MG In NS 200 / 200 400 / 400 100 / 100 Inj 100 ML @ 400 mls/hr IV.SIG Q4H [facility] Rx#:[id number] Ampicillin Inj 2,000 MG In NS 300 / 300 Inj 100 ML @ 400 mls/hr IV.SIG Q4H [facility] Rx#:[id number] Maxipime Inj 2,000 MG In NS Inj 200 / 200 100 ML @ 200 mls/hr IV.SIG Q8H [facility] Rx#:[id number] Vancomycin Inj 1,250 MG In NS 262.5 / 262.5 262.5 / 262.5 Inj 250 ML @ 250 mls/hr IV.SIG Q12H [facility] Rx#:[id number] Rocephin Inj 2,000 MG In NS Inj 200 / 200 100 ML @ 200 mls/hr IV.SIG Q12H [facility] Rx#:[id number] Keppra Inj 500 MG In NS Inj 100 210 / 210 105 / 105 ML @ 400 mls/hr IV.SIG Q12H [facility] Rx#:[id number] Oral 240 / 240 100 / 100 600 / 600 Output: Urine 1999 1200 / 1200 Stool 0 / 0 0 / 0 Urine/Stool Mix 0 / 0 0 / 0 Other: # Incontinent Voids 3 # Bowel Movements 0 0 # Incontinent Bowel Movements 0 0 - Routine Neurological Exam Lethargic CN intact MOTOR--no focal weakness - Urinary Catheter Management Straight Cath placed during this visit: yes, but has since been removed by the nurse Reason for continuing: Decision to DC catheter Removal date: 05/22/18 Removal time: 03:10 Objective Laboratory Results - last 24 hr 05/22/18 05/22/18 05/22/18 03:01 18:42 23:25 WBC RBC Hgb Hct MCV MCH MCHC RDW Plt Count MPV Neut % (Auto) Lymph % (Auto) [place] % (Auto) Eos % (Auto) Baso % (Auto) Neut # (Auto) Lymph # (Auto) [place] # (Auto) Eos # (Auto) Baso # (Auto) WBC Differential Differential Comment Sodium Potassium Chloride Carbon Dioxide Anion Gap BUN Creatinine Estimated GFR POC Glucose 147 H 175 H Random Glucose Calcium Total Bilirubin AST ALT Alkaline Phosphatase Total Protein Albumin Urine Color Yellow Urine Clarity Cloudy H Urine pH 5.0 Ur Specific [place] 1.042 H Urine Protein 30 H Urine Glucose (UA) Negative Urine Ketones Negative Urine Occult Blood Small H Urine Nitrate Positive H Urine Bilirubin Negative Urine Urobilinogen Less than 2 Ur Leukocyte Esterase Large H Urine RBC 12 H Urine WBC Urine WBC Clumps Many H Ur Squamous Epith Cells 4 Urine Bacteria Many H Urine Mucus Few H Micro UA Comment Cath-culture ind Urine Culture Comments Cath-cult indicated 05/23/18 05/23/18 05/23/18 03:16 03:16 05:45 WBC 7.7 RBC 4.23 Hgb 13.1 Hct 36.8 MCV 87.0 MCH 31.0 MCHC 35.6 RDW 12.8 Plt Count 181 MPV 7.5 Neut % (Auto) 76.3 H Lymph % (Auto) 16.2 [place] % (Auto) 5.7 Eos % (Auto) 1.3 Baso % (Auto) 0.5 Neut # (Auto) 5.9 Lymph # (Auto) 1.2 [place] # (Auto) 0.4 Eos # (Auto) 0.1 Baso # (Auto) 0.0 WBC Differential . Differential Comment Auto diff final Sodium 144 Potassium 3.8 Chloride 109 H Carbon Dioxide 29.7 Anion Gap 5 BUN 7 Creatinine 0.71 Estimated GFR 85 L POC Glucose 156 H Random Glucose 137 H Calcium 8.3 L Total Bilirubin 0.3 AST 12 L ALT 28 Alkaline Phosphatase 74 Total Protein 7.2 Albumin 2.9 L Urine Color Urine Clarity Urine pH Ur Specific [place] Urine Protein Urine Glucose (UA) Urine Ketones Urine Occult Blood Urine Nitrate Urine Bilirubin Urine Urobilinogen Ur Leukocyte Esterase Urine RBC Urine WBC Urine WBC Clumps Ur Squamous Epith Cells Urine Bacteria Urine Mucus Micro UA Comment Urine Culture Comments 05/23/18 05/23/18 14:46 18:41 WBC RBC Hgb Hct MCV MCH MCHC RDW Plt Count MPV Neut % (Auto) Lymph % (Auto) [place] % (Auto) Eos % (Auto) Baso % (Auto) Neut # (Auto) Lymph # (Auto) [place] # (Auto) Eos # (Auto) Baso # (Auto) WBC Differential Differential Comment Sodium Potassium Chloride Carbon Dioxide Anion Gap BUN Creatinine Estimated GFR POC Glucose 180 H 102 Random Glucose Calcium Total Bilirubin AST ALT Alkaline Phosphatase Total Protein Albumin Urine Color Urine Clarity Urine pH Ur Specific [place] Urine Protein Urine Glucose (UA) Urine Ketones Urine Occult Blood Urine Nitrate Urine Bilirubin Urine Urobilinogen Ur Leukocyte Esterase Urine RBC Urine WBC Urine WBC Clumps Ur Squamous Epith Cells Urine Bacteria Urine Mucus Micro UA Comment Urine Culture Comments Microbiology 05/22/18 03:01 Urine Culture - Preliminary Catheterized Urine gram negative rods 05/22/18 21:11 Aerobic Blood Culture - Preliminary Blood - Peripheral No growth in 1 day Anaerobic Blood Culture - Preliminary No growth in 1 day 05/22/18 21:06 Aerobic Blood Culture - Preliminary Blood - Peripheral No growth in 1 day Anaerobic Blood Culture - Preliminary No growth in 1 day Review/Management - Review/Management Plan: continue keppra. Change to 500 mg po bid when more alert f/u MRI
[2018-05-23] MEDS: Temazepam 15 MG Capsule PO SCH (20:56)
[2018-05-24] MEDS: Insulin NovoLOG Aspart Correctional Sugar Inj SQ SCH ×4 (00:12→17:27)
[2018-05-24] MEDS: KCL 20 mEq/D5W/NaCl 0.45% Inj 1,000 ML IV.CONT SCH ×2 (06:02→10:56)
[2018-05-24] MEDS: Levothyroxine 100 MCG Tablet PO SCH (06:02)
[2018-05-24] MEDS ORDERED: Pharmacy Ordered Lab Info OTHER ONE (07:45)
[2018-05-24] MEDS: ALPRAZolam 0.25 MG Tablet PO SCH ×2 (08:41→22:37)
[2018-05-24] MEDS: Vancomycin Inj 1,250 MG in Sodium Chlor 0.9% Inj 250 ML IV.SIG SCH (08:42)
--- NOTE | 2018-05-24 10:09 | P.PNIM ---
Subjective Interval history: Nursing denies any acute changes overnight apart from some agitation. Reports patient having slightly decreased appetite. No longer requiring a heating blanket, afebrile. Sister is present at the bedside. Patient more awake today. Sister still wanting to decline invasive procedures, just to proceed with conservative medical management. Physical Exam Vital signs: Vital Signs 05/23/18 12:00 05/23/18 14:00 05/23/18 16:00 Temperature 98.4 F 98.0 F Pulse Rate 104 H 105 H 95 H Respiratory Rate 16 16 Blood Pressure 186/81 H 163/71 H Pulse Oximetry 95 05/23/18 18:00 05/23/18 18:25 05/23/18 20:00 Temperature 98.4 F Pulse Rate 96 H 89 Respiratory Rate 14 Blood Pressure 184/78 H Pulse Oximetry 99 92 L 05/23/18 22:00 05/24/18 00:00 05/24/18 02:00 Temperature 98.1 F Pulse Rate 86 78 73 Respiratory Rate 14 14 Blood Pressure 112/55 L 110/55 L Pulse Oximetry 95 96 05/24/18 04:00 05/24/18 06:00 Temperature 97 F L Pulse Rate 99 H 98 H Respiratory Rate 18 Blood Pressure 149/65 H Pulse Oximetry 96 Intake & Output 05/23/18 05/24/18 05/24/18 18:59 06:59 18:59 Intake Total 2567.5 / 2567.5 1927.5 / 1927.5 Output Total 1200 / 1200 Balance 2567.5 / 2567.5 727.5 / 727.5 Weight 70 kg Intake: IV 1967.5 / 1967.5 1767.5 / 1767.5 D5W/1/2NS + KCL 20 mEq Inj 1, 1000 / 1000 1000 / 1000 000 ML @ 100 mls/hr IV.CONT . Q10H [facility] Rx#:[id number] Ampicillin Inj 1,000 MG In NS 100 / 100 Inj 100 ML @ 400 mls/hr IV.SIG Q4H [facility] Rx#:[id number] Ampicillin Inj 2,000 MG In NS 300 / 300 300 / 300 Inj 100 ML @ 400 mls/hr IV.SIG Q4H [facility] Rx#:[id number] Maxipime Inj 2,000 MG In NS Inj 200 / 200 100 / 100 100 ML @ 200 mls/hr IV.SIG Q8H [facility] Rx#:[id number] Vancomycin Inj 1,250 MG In NS 262.5 / 262.5 262.5 / 262.5 Inj 250 ML @ 250 mls/hr IV.SIG Q12H [facility] Rx#:[id number] Keppra Inj 500 MG In NS Inj 100 105 / 105 105 / 105 ML @ 400 mls/hr IV.SIG Q12H [facility] Rx#:[id number] Oral 600 / 600 160 / 160 Output: Urine 1200 / 1200 Other: # Incontinent Voids 3 # Bowel Movements 0 Narrative: Patient seems to be much more awake today and very pleasant Is actually smiling, and is constantly trying to play fully touch me with her hands and her feet Cooperative, opens her mouth when asked, tongue and midline No facial droop, no slurred speech, Interactive Clear lungs bilaterally, unlabored breathing Heart sounds regular rate and rhythm No lower extremity edema Moves all 4 extremities spontaneously, deliberately - Urinary Catheter Management Straight Cath placed during this visit: yes, but has since been removed by the nurse Reason for continuing: Decision to DC catheter Removal date: 05/22/18 Removal time: 03:10 Results - Labs CBC & Chem 7: 05/23/18 03:16 05/23/18 03:16 Laboratory Results - last 24 hr 05/22/18 05/23/18 05/23/18 03:01 14:46 18:41 POC Glucose 180 H 102 Urine Color Yellow Urine Clarity Cloudy H Urine pH 5.0 Ur Specific [place] 1.042 H Urine Protein 30 H Urine Glucose (UA) Negative Urine Ketones Negative Urine Occult Blood Small H Urine Nitrate Positive H Urine Bilirubin Negative Urine Urobilinogen Less than 2 Ur Leukocyte Esterase Large H Urine RBC 12 H Urine WBC Urine WBC Clumps Many H Ur Squamous Epith Cells 4 Urine Bacteria Many H Urine Mucus Few H Micro UA Comment Cath-culture ind Urine Culture Comments Cath-cult indicated 05/24/18 05/24/18 00:04 06:02 POC Glucose 130 H 107 Urine Color Urine Clarity Urine pH Ur Specific [place] Urine Protein Urine Glucose (UA) Urine Ketones Urine Occult Blood Urine Nitrate Urine Bilirubin Urine Urobilinogen Ur Leukocyte Esterase Urine RBC Urine WBC Urine WBC Clumps Ur Squamous Epith Cells Urine Bacteria Urine Mucus Micro UA Comment Urine Culture Comments Microbiology 05/22/18 03:01 Catheterized Urine Urine Culture - Preliminary gram negative rods 05/22/18 21:11 Blood - Peripheral Aerobic Blood Culture - Preliminary No growth in 1 day 05/22/18 21:11 Blood - Peripheral Anaerobic Blood Culture - Preliminary No growth in 1 day 05/22/18 21:06 Blood - Peripheral Aerobic Blood Culture - Preliminary No growth in 1 day 05/22/18 21:06 Blood - Peripheral Anaerobic Blood Culture - Preliminary No growth in 1 day Assessment and Plan - Plan 58-year-old white female admitted with acute encephalopathy, concern for possible meningitis Acute encephalopathy -significantly improved since yesterday after antibiotics were expanded -Still unsure if there was a component of meningitis since family has declined lumbar puncture -UTI likely related component, E. coli growing -Seizure activity was confirmed on EEG treat as below -Blood cultures negative -Broad-spectrum antibiotics of vancomycin, cefepime, ampicillin, de-escalate once UTI sensitivities return and monitor for 24 hours and trend CBC E. coli UTI Apparently is MDR -Continue cefepime, consult ID Seizure activity -EEG suggestive of epileptiform activity -Keppra by neurology Hypothyroidism Severe mental retardation since -Noted to have significantly elevated TSH -Increase Synthroid dose orally HTN -start coreg to minimize rebound HTN from propranolol discontinuation -vasotec prn Tremor - hold home propranolol in light of [employer] depression risk Diet as tolerated Addendum: Since MDR E. coli UTI which is sensitive to cefepime and since the patient was still very initially hypothermic despite receiving vanco, ampicillin, and rocephin originally, I will stop vanc and ampicillin, maintain cefepime and observe for any fevers/hypothermia over next 24 hrs while obtaining ID recs. Discharge Planning: Palliative care and hospice following.
[2018-05-24] MEDS: Sod Chloride 0.9% Inj 1,000 ML IV.CONT SCH (10:43)
--- NOTE | 2018-05-24 14:11 | P.CONID ---
History of Present Illness Service: Infectious disease Consult date: 05/24/18 Requesting Physician: Fredy Cunningham Reason for Consult: Evaluate patient with UTI with resistant E. coli Primary Care Provider: UNKNOWN History of Present Illness: Patient seen and examined. Records reviewed. Patient is a 58-year-old female, resides in the [facility], with known mental retardation and apparently patient is aphasic as a baseline, brought into the hospital when she was noted to be lethargic. She was given Narcan by the EMS with no improvement. Her mental status since has improved. Neurology is seeing the patient and evaluating her encephalopathy. Patient had an abnormal urinalysis, and the urine culture is now growing resistant E. coli. She is afebrile. She had low-grade temps yesterday up to 100. WBC is normal. When I saw the patient today I had noticed a confluent generalized maculopapular blanching rash in her trunk all the way to her groin and upper thigh. I spoke with the nurse who took care of her today, and the patient was apparently given a bathing today and there was no rash noted. She came from ICU, and has been here on the sixth floor for the last 2 hours and the nurse had noted the rash. Patient was initially on broad-spectrum antibiotics for ?GRILL ASSOCIATE infection. She was on ampicillin, Rocephin, and vancomycin. Patient now is only on cefepime for coverage on the E. coli in the urine culture. She has no Gambino catheter. Infectious disease consultation has been requested to assist with evaluation and treatment. Review of Systems unobtainable due to mental condition PMFSH - History History Provided By: Family Member, Medical Record - Medical History Medical History: Medical History (Last Reviewed 05/24/18 @ 14:06 by Regina Yap MD) Anxiety Cerebral palsy Osteoarthritis Seasonal allergic rhinitis Diabetes Hypothyroidism Intellectual disability - Family History Family History: Family History (Last Reviewed 05/24/18 @ 14:06 by Regina Yap MD) Other Blindness Diabetes - Tobacco History Second Hand Smoke Exposure: No Tobacco Use In Past 30 Days: No Smoking Status: Never smoker - Alcohol History How Often Do You Have a Drink Containing Alcohol: Never - Substance Use History Substance History: No History of Abuse, Unable to Obtain - Travel History Recent Travel in the [facility] [place] Within the Last 8 Weeks: No Recent Travel Out of the Country Within the Last 8 Weeks: No - Immunization History Tetanus Immunization: <5 Years Hx Influenza Vaccine This Season: Unable to Assess Medications and Allergies Active Medications: Active Medications Acetaminophen (Tylenol) 650 mg PO Q4H PRN PRN Reason: Temp > 100.4 Alprazolam (Xanax) 0.25 mg PO BID [facility] Last Admin: 05/24/18 08:41 Dose: 0.25 mg Carvedilol (Coreg) 3.125 mg PO BID [facility] Last Admin: 05/24/18 10:56 Dose: 3.125 mg Dextrose (D50w Vial) 50 ml IV.PUSH UNSCH PRN PRN Reason: PER HYPOGLYCEMIA PROTOCOL Enalaprilat (Vasotec Inj) 1.25 mg IV.PUSH Q6H PRN PRN Reason: SBP>160, DBP>90 Last Admin: 05/24/18 08:41 Dose: 1.25 mg Enoxaparin Sodium (Lovenox Inj) 40 mg SQ Q24H [facility] Last Admin: 05/22/18 03:31 Dose: 40 mg Glucagon (Glucagon Inj) 1 mg OTHER PRN PRN PRN Reason: for Hypoglycemia Protocol Sodium Chloride (Ns Inj) 1,000 mls @ 70 mls/hr IV.CONT .[id number] [facility] Last Admin: 05/24/18 10:43 Dose: Not Given Potassium Chloride/Dextrose/Sod Cl (D5w/1/2ns + Kcl 20 Meq Inj) 1,000 mls @ 100 mls/hr IV.CONT .Q10H [facility] Last Admin: 05/24/18 10:56 Dose: 100 mls/hr Levetiracetam 500 mg/ Sodium (Chloride) 105 mls @ 400 mls/hr IV.SIG Q12H [facility] Last Infusion: 05/24/18 03:42 Dose: Infused Cefepime HCl 2,000 mg/ Sodium (Chloride) 100 mls @ 200 mls/hr IV.SIG Q8H [facility] Last Infusion: 05/24/18 11:21 Dose: Infused Insulin Aspart (Novolog Insulin Correctional Sugar Inj) 0 unit SQ Q6HR [facility]; Protocol Last Admin: 05/24/18 11:40 Dose: Not Given Lactobacillus Acidophilus (Lactinex Pkt) 1 gm PO TID [facility] Last Admin: 05/24/18 08:42 Dose: 1 gm Levothyroxine Sodium (Synthroid) 112 mcg PO DAILY@0600 [facility] Ondansetron HCl (Zofran Inj) 4 mg IV.PUSH Q6H PRN PRN Reason: NAUSEA OR VOMITING Sodium Chloride (Ns Flush) 2 ml IV.FLUSH BID [facility] Last Admin: 05/24/18 08:42 Dose: 2 ml Sodium Chloride (Ns Flush) 2 ml IV.FLUSH PRN PRN PRN Reason: FLUSH AFTER USING IV ACCESS Temazepam (Restoril) 15 mg PO HS [facility] Last Admin: 05/23/18 20:56 Dose: 15 mg Allergies Allergy/AdvReac Type Severity Reaction Status Date / Time chocolate flavor Allergy Severe Hives Verified 05/23/18 22:55 Home Medications Medication Instructions Recorded Confirmed Type acetaminophen 500 mg PO Q6H PRN MDD 100mg 05/22/18 05/22/18 History alprazolam 0.25 mg PO BID 05/22/18 05/22/18 History aspirin [Aspirin Low Dose] 81 mg PO DAILY 05/22/18 05/22/18 History cetirizine 10 mg PO DAILY 05/22/18 05/22/18 History cholecalciferol (vitamin D3) 50,000 unit PO WEEKLY 05/22/18 05/22/18 History [Vitamin D3] docusate sodium 100 mg PO DAILY 05/22/18 05/22/18 History ferrous sulfate 325 mg PO BID 05/22/18 05/22/18 History fexofenadine 180 mg PO DAILY 05/22/18 05/22/18 History guaifenesin [Tussin] 100 mg PO Q4HR 05/22/18 05/22/18 History levothyroxine 100 mcg PO DAILY 05/22/18 05/22/18 History loperamide 2 mg PO DAILY 05/22/18 05/22/18 History promethazine 25 mg PO Q6H PRN MDD 100 05/22/18 05/22/18 History propranolol 10 mg PO BID 05/22/18 05/22/18 History temazepam 15 mg PO HS 05/22/18 05/22/18 History Exam Vital signs: Vital Signs 05/23/18 16:00 05/23/18 18:00 05/23/18 18:25 Temperature 98.0 F Pulse Rate 95 H 96 H Respiratory Rate 16 Blood Pressure 163/71 H Pulse Oximetry 95 99 05/23/18 20:00 05/23/18 22:00 05/24/18 00:00 Temperature 98.4 F 98.1 F Pulse Rate 89 86 78 Respiratory Rate 14 14 14 Blood Pressure 184/78 H 112/55 L 110/55 L Pulse Oximetry 92 L 95 96 05/24/18 02:00 05/24/18 04:00 05/24/18 06:00 Temperature 97 F L Pulse Rate 73 99 H 98 H Respiratory Rate 18 Blood Pressure 149/65 H Pulse Oximetry 96 05/24/18 08:00 05/24/18 10:00 05/24/18 11:00 Temperature 98.2 F 98.2 F Pulse Rate 93 H 88 93 H Respiratory Rate 18 15 Blood Pressure 174/87 H 148/65 H Pulse Oximetry 97 98 Intake & Output 05/23/18 05/24/18 05/24/18 18:59 06:59 18:59 Intake Total 2567.5 / 2567.5 1927.5 / 1927.5 1862.5 / 1862.5 Output Total 1200 / 1200 700 / 700 Balance 2567.5 / 2567.5 727.5 / 727.5 1162.5 / 1162.5 Weight 70 kg Intake: IV 1967.5 / 1967.5 1767.5 / 1767.5 1462.5 / 1462.5 D5W/1/2NS + KCL 20 mEq Inj 1, 1000 / 1000 1000 / 1000 1000 / 1000 000 ML @ 100 mls/hr IV.CONT . Q10H [facility] Rx#:[id number] Ampicillin Inj 1,000 MG In NS 100 / 100 Inj 100 ML @ 400 mls/hr IV.SIG Q4H [facility] Rx#:[id number] Ampicillin Inj 2,000 MG In NS 300 / 300 300 / 300 100 / 100 Inj 100 ML @ 400 mls/hr IV.SIG Q4H [facility] Rx#:[id number] Maxipime Inj 2,000 MG In NS Inj 200 / 200 100 / 100 100 / 100 100 ML @ 200 mls/hr IV.SIG Q8H [facility] Rx#:[id number] Vancomycin Inj 1,250 MG In NS 262.5 / 262.5 262.5 / 262.5 262.5 / 262.5 Inj 250 ML @ 250 mls/hr IV.SIG Q12H [facility] Rx#:[id number] Keppra Inj 500 MG In NS Inj 100 105 / 105 105 / 105 ML @ 400 mls/hr IV.SIG Q12H [facility] Rx#:[id number] Oral 600 / 600 160 / 160 400 / 400 Output: Urine 1200 / 1200 700 / 700 Other: # Incontinent Voids 3 2 # Bowel Movements 0 Narrative: Physical examination GENERAL: Patient is a well-nourished, well-developed female, awake, focusing , not really interacting, not in respiratory distress. SKIN: Warm and dry. She has confluent blanching maculopapular rash in her trunk from below breast all the way down to her groin and upper thighs. HEAD: Atraumatic. Normocephalic. No temporal wasting, or tenderness. EYES: [place] conjunctiva. No petechia or hemorrhage. Pupils equal, round and reactive to light. Extraocular movements full and intact. No scleral icterus. Has mild discharge R eye. No injection. EARS, NOSE and THROAT: No nasal bleeding or purulent nasal discharge. No sinus tenderness. Mucous membranes pink and moist. NECK: Trachea midline. Supple and not tender, no meningeal signs. NO nuchal rigidity CARDIOVASCULAR: Regular rate and rhythm. No murmurs, rubs or gallops heard RESPIRATORY: Clear to auscultation. Breath sounds equal bilaterally. No rales , wheezing or rhonchi ABDOMEN: Soft, non-tender, nondistended. Bowel sounds present and normoactive. No guarding. No rebound. No organomegaly. EXTREMITIES: No clubbing, cyanosis, or edema.No joint effusion, has good ROM. No calf tenderness. Well perfused and warm. NEUROLOGICAL: Awake and alert. No facial asymmetry. Moving all extremities PSYCHIATRIC: Gets agitated during exam LINE: No evidence of infection Results - Labs CBC & Chem 7: 05/23/18 03:16 05/23/18 03:16 Labs: Laboratory Results - last 24 hr 05/23/18 05/23/18 05/24/18 14:46 18:41 00:04 POC Glucose 180 H 102 130 H Vancomycin Trough 05/24/18 05/24/18 05/24/18 06:02 08:43 11:30 POC Glucose 107 152 H Vancomycin Trough 15.7 H Assessment and Plan - Plan Impression Altered mental status, ?sepsis, ?SZ/postictal state - clinically doubt GRILL ASSOCIATE infection UTI, no gambino, has E coli Rash likely drug eruption, etiology? - she has received AMpicillin, Rocephin, Vanco and now Cefepime Mental retardation SNF resident Recommendation Stop Cefepime Monitor rash IV Azactam for UTI Neuro work-up in progress Monitor progress I will follow along with you Thank you for this consultation D/W RN
[2018-05-24] MEDS: Temazepam 15 MG Capsule PO SCH (22:38)
[2018-05-25] MEDS: Insulin NovoLOG Aspart Correctional Sugar Inj SQ SCH ×4 (01:34→17:00)
[2018-05-25] MEDS: Levothyroxine 112 MCG Tablet PO SCH (06:18)
[2018-05-25 06:19] LABS: Baso % (Auto) 0.4 % (0.0-2.0); Eos # (Auto) 0.4 th/mm3 (0.0-0.4); Eos % (Auto) 5.4 % (0.0-4.0); Hematocrit 40.2 % (35.0-46.0); Hemoglobin 13.9 gm/dL (11.6-15.3); Lymph # (Auto) 1.3 th/mm3 (1.0-4.8); Lymph % (Auto) 17.3 % (9.0-44.0); Mean Corpuscular HGB Conc 34.5 % (32.0-36.0); Mean Corpuscular Hemoglobin 30.6 pg (27.0-34.0); Mean Corpuscular Volume 88.5 fL (80.0-100.0); Mean Platelet Volume 7.5 fL (7.0-11.0); Mono # (Auto) 0.4 th/mm3 (0.0-0.9); Mono % (Auto) 5.8 % (0.0-8.0); Neut # (Auto) 5.4 th/mm3 (1.8-7.7); Neut % (Auto) 71.1 % (16.0-70.0); Platelet Count 214 th/mm3 (150-450); Red Blood Count 4.55 mil/mm3 (4.00-5.30); Red Cell Distribution Width 13.1 % (11.6-17.2); White Blood Count 7.6 th/mm3 (4.0-11.0)
--- NOTE | 2018-05-25 12:35 | P.PNID ---
Subjective Remarks: Patient is a 58-year-old female, resides in the [facility], with known mental retardation and apparently patient is aphasic as a baseline, brought into the hospital when she was noted to be lethargic. She was given Narcan by the EMS with no improvement. Her mental status since has improved. Neurology is seeing the patient and evaluating her encephalopathy. Patient had an abnormal urinalysis, and the urine culture is now growing resistant E. coli. She is afebrile. She had low-grade temps yesterday up to 100. WBC is normal. When I saw the patient today I had noticed a confluent generalized maculopapular blanching rash in her trunk all the way to her groin and upper thigh. I spoke with the nurse who took care of her today, and the patient was apparently given a bathing today and there was no rash noted. She came from ICU, and has been here on the sixth floor for the last 2 hours and the nurse had noted the rash. Patient was initially on broad-spectrum antibiotics for ?AUTOMATION MACHINE OPERATOR infection. She was on ampicillin, Rocephin, and vancomycin. Patient now is only on cefepime for coverage on the E. coli in the urine culture. She has no Gambino catheter. Infectious disease consultation has been requested to assist with evaluation and treatment. Notes reviewed Temps ok Patient awake, but non-verbal Has wrist restraints Antibiotics: Azactam Lines: PIV Past Medical History: Anxiety Cerebral palsy Osteoarthritis Seasonal allergic rhinitis Diabetes Hypothyroidism Intellectual disability Allergies/Adverse Reactions: Allergies chocolate flavor Allergy (Severe, Verified 05/23/18 22:55) Hives Objective Vital Signs 05/24/18 14:00 05/24/18 16:00 05/24/18 20:56 Temperature 97.2 F L 98.4 F 98.2 F Pulse Rate 94 H 93 H 87 Respiratory Rate 16 17 16 Blood Pressure 155/96 H 158/66 H 165/82 H Pulse Oximetry 94 L 96 94 L 05/24/18 23:47 05/25/18 03:57 05/25/18 04:00 Temperature 98.9 F 98.7 F Pulse Rate 94 H 92 H Respiratory Rate 16 16 16 Blood Pressure 171/61 H 162/79 H Pulse Oximetry 97 96 05/25/18 08:00 Temperature 98.4 F Pulse Rate 87 Respiratory Rate 16 Blood Pressure 153/91 H Pulse Oximetry 94 L Intake & Output 05/24/18 05/25/18 05/25/18 18:59 06:59 18:59 Intake Total 2189.5 / 2189.5 305 / 305 Output Total 702 / 702 Balance 1487.5 / 1487.5 305 / 305 Weight 68.8 kg Intake: IV 1567.5 / 1567.5 305 / 305 D5W/1/2NS + KCL 20 mEq Inj 1, 1000 / 1000 100 / 100 000 ML @ 100 mls/hr IV.CONT . Q10H [facility] Rx#:[id number] Ampicillin Inj 2,000 MG In NS 100 / 100 Inj 100 ML @ 400 mls/hr IV.SIG Q4H [facility] Rx#:[id number] Azactam Inj 1,000 MG In NS Inj 100 / 100 100 ML @ 200 mls/hr IV.SIG Q8H [facility] Rx#:[id number] Maxipime Inj 2,000 MG In NS Inj 100 / 100 100 ML @ 200 mls/hr IV.SIG Q8H [facility] Rx#:[id number] Vancomycin Inj 1,250 MG In NS 262.5 / 262.5 Inj 250 ML @ 250 mls/hr IV.SIG Q12H [facility] Rx#:[id number] Keppra Inj 500 MG In NS Inj 100 105 / 105 105 / 105 ML @ 400 mls/hr IV.SIG Q12H [facility] Rx#:[id number] Oral 622 / 622 Output: Urine 700 / 700 Urine/Stool Mix 2 / 2 Other: # Incontinent Voids 2 3 Date of Last Bowel Movement 05/24/18 05/24/18 # Bowel Movements 1 # Incontinent Bowel Movements 2 05/22/18 21:11 Blood - Peripheral Aerobic Blood Culture - Preliminary No growth in 3 days 05/22/18 21:11 Blood - Peripheral Anaerobic Blood Culture - Preliminary No growth in 3 days 05/22/18 21:06 Blood - Peripheral Aerobic Blood Culture - Preliminary No growth in 3 days 05/22/18 21:06 Blood - Peripheral Anaerobic Blood Culture - Preliminary No growth in 3 days 05/22/18 03:01 Catheterized Urine Urine Culture - Final Escherichia coli Multidrug Resistant Lab - Hematology Results 05/25/18 05:58 WBC 7.6 RBC 4.55 Hgb 13.9 Hct 40.2 MCV 88.5 MCH 30.6 MCHC 34.5 RDW 13.1 Plt Count 214 MPV 7.5 Neut % (Auto) 71.1 H Lymph % (Auto) 17.3 [place] % (Auto) 5.8 Eos % (Auto) 5.4 H Baso % (Auto) 0.4 Neut # (Auto) 5.4 Lymph # (Auto) 1.3 [place] # (Auto) 0.4 Eos # (Auto) 0.4 Baso # (Auto) 0.0 WBC Differential . Differential Comment Auto diff final Lab - Chemistry Results 05/23/18 05/23/18 05/24/18 14:46 18:41 00:04 POC Glucose 180 H 102 130 H 05/24/18 05/24/18 05/24/18 06:02 11:30 17:26 POC Glucose 107 152 H 141 H 05/25/18 05/25/18 05/25/18 01:24 06:12 12:10 POC Glucose 158 H 107 95 Imaging: ITS Impressions CT CAD 05/22/18 00:38 CONCLUSION: Physiological brain perfusion parameters with RAPID analysis as above. The decision for consideration of therapy is multi factorial and multi disciplinary relying on subjective and objective clinical data. This data is not construed or intended to be the sole determinant of treatment eligibility. Chest X-Ray 05/22/18 00:38 CONCLUSION: No acute cardiopulmonary process. Head CT 05/22/18 00:38 CONCLUSION: 1. No acute areas of hemorrhage or mass effect are seen. 2. Questionable hyperdense distal left M1 middle cerebral artery. This could be further evaluated with a CTA. The patient is scheduled for a CTA. Report was called by [Dr. Crawley to Dr. Delgado at 12:59 AM.] Head CTA 05/22/18 00:38 CONCLUSION: Negative CTA of the head. Neck CTA 05/22/18 00:38 CONCLUSION: 1. Plaque at the carotid bulb regions being worse than the left but a significant stenosis is not seen. 2. Asymmetry to the vertebral arteries which can be seen normally. The left vertebral artery is larger and continues as the basilar artery. The right vertebral artery ends at the posterior inferior cerebellar artery. 3. Normal appearance of the left vertebral artery arising directly from the aortic arch. Physical Exam: GENERAL: awake, focusing, not really interacting, not in respiratory distress. SKIN: Warm and dry. Rash in trunk is better HEAD: Atraumatic. Normocephalic. No temporal wasting, or tenderness. EYES: [place] conjunctiva. No petechia or hemorrhage. Pupils equal, round and reactive to light. Extraocular movements full and intact. No scleral icterus. Has mild discharge R eye. No injection. EARS, NOSE and THROAT: No nasal bleeding or purulent nasal discharge. No sinus tenderness. Mucous membranes pink and moist. NECK: Trachea midline. Supple and not tender, no meningeal signs. NO nuchal rigidity CARDIOVASCULAR: Regular rate and rhythm. No murmurs, rubs or gallops heard RESPIRATORY: Clear to auscultation. Breath sounds equal bilaterally. No rales , wheezing or rhonchi ABDOMEN: Soft, non-tender, nondistended. Bowel sounds present and normoactive. No guarding. No rebound. No organomegaly. EXTREMITIES: No clubbing, cyanosis, or edema.No joint effusion, has good ROM. No calf tenderness. Well perfused and warm. NEUROLOGICAL: Awake and alert. No facial asymmetry. Moving all extremities PSYCHIATRIC: Gets agitated during exam LINE: No evidence of infection Assessment and Plan - Plan Impression Altered mental status, ?sepsis, ?SZ/postictal state - clinically doubt AUTOMATION MACHINE OPERATOR infection UTI, no gambino, has E coli Rash likely drug eruption, etiology? - she has received AMpicillin, Rocephin, Vanco and now Cefepime Mental retardation SNF resident Recommendation Monitor rash Continue IV Azactam for UTI Neuro work-up in progress Monitor progress
--- NOTE | 2018-05-25 13:55 | P.PNIM ---
Subjective Interval history: The patient is in bed not talking at baseline. However not with her head yes and no. She does not appear in any distress distress at this time. Vital signs are stable. Has been up febrile overnight. Physical Exam Vital signs: Last Vital Signs Temp 98.7 F 05/25/18 12:00 Pulse 91 H 05/25/18 12:00 Resp 16 05/25/18 12:00 BP 193/88 H 05/25/18 12:00 Pulse Ox 100 05/25/18 12:00 Intake & Output 05/23/18 05/24/18 05/25/18 05/26/18 06:59 06:59 06:59 06:59 Intake Total 4127.5 / 4127.5 4495.0 / 4495.0 2494.5 / 2494.5 Output Total 3200 / 3200 1200 / 1200 702 / 702 Balance 927.5 / 927.5 3295.0 / 3295.0 1792.5 / 1792.5 Weight 69 kg 70 kg 68.8 kg Narrative: GENERAL: Patient is a well-nourished, well-developed female, awake, focusing , nonverbal at baseline, nods yes/no, not in distress. SKIN: Warm and dry. She has confluent blanching maculopapular rash in her trunk from below breast all the way down to her groin and upper thighs. CARDIOVASCULAR: Regular rate and rhythm. No murmurs, rubs or gallops heard RESPIRATORY: Clear to auscultation. Breath sounds equal bilaterally. No rales , wheezing or rhonchi ABDOMEN: Soft, non-tender, nondistended. Bowel sounds present and normoactive. No guarding. No rebound. No organomegaly. EXTREMITIES: No clubbing, cyanosis, or edema.No joint effusion, has good ROM. No calf tenderness. Well perfused and warm. NEUROLOGICAL: Awake and alert. No facial asymmetry. Moving all extremities PSYCHIATRIC: Agitated on/off Urinary Catheter Management Straight: Cath placed during this visit: yes, but has since been removed by the nurse Removal date: 05/22/18 Removal time: 03:10 Results Labs CBC & Chem 7: 05/25/18 05:58 05/23/18 03:16 Labs: Microbiology 05/22/18 21:11 Blood - Peripheral Aerobic Blood Culture - Preliminary No growth in 3 days 05/22/18 21:11 Blood - Peripheral Anaerobic Blood Culture - Preliminary No growth in 3 days 05/22/18 21:06 Blood - Peripheral Aerobic Blood Culture - Preliminary No growth in 3 days 05/22/18 21:06 Blood - Peripheral Anaerobic Blood Culture - Preliminary No growth in 3 days 05/22/18 03:01 Catheterized Urine Urine Culture - Final Escherichia coli Multidrug Resistant Assessment and Plan Plan 58-year-old white female admitted with acute encephalopathy, concern for possible meningitis Acute encephalopathy -significantly improved since yesterday after antibiotics were expanded -Still unsure if there was a component of meningitis since family has declined lumbar puncture -UTI likely related component, E. coli growing -Seizure activity was confirmed on EEG treat as below -Blood cultures negative -Broad-spectrum antibiotics of vancomycin, cefepime, ampicillin, de-escalate once UTI sensitivities return and monitor for 24 hours and trend CBC E. 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 coli UTI on azactan IV at this time per ID recs since patient was noted with rash poss drug reaction from previous abx. Discharge Planning: Palliative care and hospice following. Progress Note: Quality VTE Deep Vein Thrombosis/Pulmonary Embolism Present on Admission: No
[2018-05-25] MEDS: ALPRAZolam 0.25 MG Tablet PO SCH ×2 (14:32→20:41)
[2018-05-25] MEDS: Temazepam 15 MG Capsule PO SCH (22:15)
[2018-05-26] MEDS: Insulin NovoLOG Aspart Correctional Sugar Inj SQ SCH ×4 (00:24→17:12)
[2018-05-26 04:16] LABS: Baso % (Auto) 0.5 % (0.0-2.0); Eos # (Auto) 0.5 th/mm3 (0.0-0.4); Hematocrit 43.1 % (35.0-46.0); Hemoglobin 14.6 gm/dL (11.6-15.3); Lymph # (Auto) 1.5 th/mm3 (1.0-4.8); Lymph % (Auto) 21.3 % (9.0-44.0); Mean Corpuscular HGB Conc 33.9 % (32.0-36.0); Mean Corpuscular Hemoglobin 30.4 pg (27.0-34.0); Mean Corpuscular Volume 89.8 fL (80.0-100.0); Mean Platelet Volume 7.6 fL (7.0-11.0); Mono # (Auto) 0.5 th/mm3 (0.0-0.9); Mono % (Auto) 7.6 % (0.0-8.0); Neut # (Auto) 4.5 th/mm3 (1.8-7.7); Neut % (Auto) 63.6 % (16.0-70.0); Platelet Count 231 th/mm3 (150-450); Red Cell Distribution Width 13.1 % (11.6-17.2)
[2018-05-26 04:29] LABS: Calcium 9.2 mg/dL (8.5-10.1); Carbon Dioxide 29.9 meq/L (21.0-32.0); Potassium 3.9 meq/L (3.5-5.1)
[2018-05-26] MEDS: Levothyroxine 112 MCG Tablet PO SCH (05:58)
[2018-05-26] MEDS: ALPRAZolam 0.25 MG Tablet PO SCH ×2 (09:12→21:27)
--- NOTE | 2018-05-26 09:46 | P.PNID ---
Subjective Remarks: Patient is a 58-year-old female, [facility], with known mental retardation and apparently patient is aphasic as a baseline, brought into the hospital when she was noted to be lethargic. She was given Narcan by the EMS with no improvement. Her mental status since has improved. Neurology is seeing the patient and evaluating her encephalopathy. Patient had an abnormal urinalysis, and the urine culture is now growing resistant E. coli. She is afebrile. She had low-grade temps yesterday up to 100. WBC is normal. When I saw the patient today I had noticed a confluent generalized maculopapular blanching rash in her trunk all the way to her groin and upper thigh. I spoke with the nurse who took care of her today, and the patient was apparently given a bathing today and there was no rash noted. She came from ICU, and has been here on the sixth floor for the last 2 hours and the nurse had noted the rash. Patient was initially on broad-spectrum antibiotics for ?TABLE INSPECTOR infection. She was on ampicillin, Rocephin, and vancomycin. Patient now is only on cefepime for coverage on the E. coli in the urine culture. She has no Gambino catheter. Infectious disease consultation has been requested to assist with evaluation and treatment. Notes reviewed Temps ok Patient awake, but non-verbal Has wrist restraints Rash looks same Antibiotics: Azactam Lines: PIV Past Medical History: Anxiety Cerebral palsy Osteoarthritis Seasonal allergic rhinitis Diabetes Hypothyroidism Intellectual disability Allergies/Adverse Reactions: Allergies chocolate flavor Allergy (Severe, Verified 05/23/18 22:55) Hives Objective Vital Signs 05/25/18 12:00 05/25/18 16:00 05/25/18 20:00 Temperature 98.7 F 98.5 F 99 F Pulse Rate 91 H 104 H 93 H Respiratory Rate 16 16 18 Blood Pressure 193/88 H 159/81 H 167/92 H Pulse Oximetry 100 97 95 05/26/18 00:00 05/26/18 04:10 05/26/18 04:45 Temperature 98.2 F 98.7 F Pulse Rate 71 86 Respiratory Rate 18 18 Blood Pressure 135/76 163/99 H 155/89 H Pulse Oximetry 95 95 Intake & Output 05/25/18 05/26/18 05/26/18 18:59 06:59 18:59 Intake Total 780 / 780 365 / 365 Balance 780 / 780 365 / 365 Weight 68.2 kg Intake: IV 305 / 305 Azactam Inj 1,000 MG In NS Inj 200 / 200 100 ML @ 200 mls/hr IV.SIG Q8H [facility] Rx#:[id number] Keppra Inj 500 MG In NS Inj 100 105 / 105 ML @ 400 mls/hr IV.SIG Q12H [facility]ION Rx#:[id number] Oral 780 / 780 60 / 60 Other: # Voids 5 3 Date of Last Bowel Movement 05/25/18 05/25/18 # Bowel Movements 1 0 05/22/18 21:11 Blood - Peripheral Aerobic Blood Culture - Preliminary No growth in 3 days 05/22/18 21:11 Blood - Peripheral Anaerobic Blood Culture - Preliminary No growth in 3 days 05/22/18 21:06 Blood - Peripheral Aerobic Blood Culture - Preliminary No growth in 3 days 05/22/18 21:06 Blood - Peripheral Anaerobic Blood Culture - Preliminary No growth in 3 days 05/22/18 03:01 Catheterized Urine Urine Culture - Final Escherichia coli Multidrug Resistant Lab - Hematology Results 05/25/18 05/26/18 05:58 03:42 WBC 7.6 7.0 RBC 4.55 4.80 Hgb 13.9 14.6 Hct 40.2 43.1 MCV 88.5 89.8 MCH 30.6 30.4 MCHC 34.5 33.9 RDW 13.1 13.1 Plt Count 214 231 MPV 7.5 7.6 Neut % (Auto) 71.1 H 63.6 Lymph % (Auto) 17.3 21.3 [place] % (Auto) 5.8 7.6 Eos % (Auto) 5.4 H 7.0 H Baso % (Auto) 0.4 0.5 Neut # (Auto) 5.4 4.5 Lymph # (Auto) 1.3 1.5 [place] # (Auto) 0.4 0.5 Eos # (Auto) 0.4 0.5 H Baso # (Auto) 0.0 0.0 WBC Differential . . Differential Comment Auto diff final Auto diff final Lab - Chemistry Results 05/24/18 05/24/18 05/25/18 11:30 17:26 01:24 Sodium Potassium Chloride Carbon Dioxide Anion Gap BUN Creatinine Estimated GFR POC Glucose 152 H 141 H 158 H Random Glucose Calcium 05/25/18 05/25/18 05/25/18 06:12 12:10 23:53 Sodium Potassium Chloride Carbon Dioxide Anion Gap BUN Creatinine Estimated GFR POC Glucose 107 95 140 H Random Glucose Calcium 05/26/18 05/26/18 03:42 06:00 Sodium 139 Potassium 3.9 Chloride 105 Carbon Dioxide 29.9 Anion Gap 4 L BUN 15 Creatinine 0.71 Estimated GFR 85 L POC Glucose 118 H Random Glucose 119 H Calcium 9.2 Imaging: ITS Impressions CT CAD 05/22/18 00:38 CONCLUSION: Physiological brain perfusion parameters with RAPID analysis as above. The decision for consideration of therapy is multi factorial and multi disciplinary relying on subjective and objective clinical data. This data is not construed or intended to be the sole determinant of treatment eligibility. Chest X-Ray 05/22/18 00:38 CONCLUSION: No acute cardiopulmonary process. Head CT 05/22/18 00:38 CONCLUSION: 1. No acute areas of hemorrhage or mass effect are seen. 2. Questionable hyperdense distal left M1 middle cerebral artery. This could be further evaluated with a CTA. The patient is scheduled for a CTA. Report was called by [Dr. Crawley to Dr. Delgado at 12:59 AM.] Head CTA 05/22/18 00:38 CONCLUSION: Negative CTA of the head. Neck CTA 05/22/18 00:38 CONCLUSION: 1. Plaque at the carotid bulb regions being worse than the left but a significant stenosis is not seen. 2. Asymmetry to the vertebral arteries which can be seen normally. The left vertebral artery is larger and continues as the basilar artery. The right vertebral artery ends at the posterior inferior cerebellar artery. 3. Normal appearance of the left vertebral artery arising directly from the aortic arch. Physical Exam: GENERAL: awake, focusing, not really interacting, not in respiratory distress. SKIN: Warm and dry. Rash looks same as yesterday HEAD: Atraumatic. Normocephalic. No temporal wasting, or tenderness. EYES: [place] conjunctiva. No petechia or hemorrhage. Pupils equal, round and reactive to light. Extraocular movements full and intact. No scleral icterus. EARS, NOSE and THROAT: . Mucous membranes pink and moist. NECK: Trachea midline. Supple and not tender, no meningeal signs. NO nuchal rigidity CARDIOVASCULAR: Regular rate and rhythm. No murmurs, rubs or gallops heard RESPIRATORY: Clear to auscultation. Breath sounds equal bilaterally. No rales , wheezing or rhonchi ABDOMEN: Soft, non-tender, nondistended. Bowel sounds present and normoactive. No guarding. No rebound. No organomegaly. EXTREMITIES: No clubbing, cyanosis, or edema. No calf tenderness. NEUROLOGICAL: Awake and alert. No facial asymmetry. Moving all extremities PSYCHIATRIC: Gets agitated during exam LINE: No evidence of infection Assessment and Plan - Plan Impression Altered mental status, ?sepsis, ?SZ/postictal state - clinically doubt TABLE INSPECTOR infection UTI, no gambino, has E coli Rash likely drug eruption, etiology? - she has received AMpicillin, Rocephin, Vanco and now Cefepime Mental retardation SNF resident Recommendation Monitor rash - reevaluate other meds Continue IV Azactam for UTI - give until 05/28 Monitor progress
--- NOTE | 2018-05-26 13:16 | P.PNPAL ---
Reason for Visit Reason for visit: a. To assist with evaluation and management of symptoms including: Pain, seizures. b. To assist medical decision maker(s) with: better understanding of current medical conditions; weighing benefits/burdens of medical treatment options; making medical treatment decisions. Subjective Subjective/Interval History: Palliative care follow-up for further clarifications of goals of care. Patient seen in medical floor, awake and alert. Appears more interactive than previously seen, nonverbal at baseline with limited communication Via hand signs. UA culture positive for E. coli, multidrug resistant. Infectious disease following, patient currently on IV Azactam. Patient afebrile, stable hemodynamically. Tolerating room air with oxygen saturation in the mid 90s. Appetite reported as good. Met with patient's sister/HCS Chastity. Sister reports that after further discussion, she has an elected for patient to continue current medical management to include IV antibiotic for a concurrent UTI. Plan to return patient to her long-term facility within the next 48 hours when she completes IV antibiotic course. Sister reports that they are not interested in hospice services at this time. Reviewed future role of hospice should patient's clinical condition worsen or additional functional decline. Sister receptive to this. Case discussed with hospice clinical marketer Tonya. Advance Directives Living Will: Copy in medical record Health Care Surrogate: Copy in medical record Objective Vital Signs: Vital Signs 05/25/18 16:00 05/25/18 20:00 05/26/18 00:00 Temperature 98.5 F 99 F 98.2 F Pulse Rate 104 H 93 H 71 Respiratory Rate 16 18 18 Blood Pressure 159/81 H 167/92 H 135/76 Pulse Oximetry 97 95 95 05/26/18 04:10 05/26/18 04:45 05/26/18 08:00 Temperature 98.7 F 98.1 F Pulse Rate 86 84 Respiratory Rate 18 18 Blood Pressure 163/99 H 155/89 H 191/89 H Pulse Oximetry 95 96 05/26/18 12:00 Temperature 99.6 F Pulse Rate 92 H Respiratory Rate 18 Blood Pressure 176/86 H Pulse Oximetry 93 L Intake & Output 05/25/18 05/26/18 05/26/18 18:59 06:59 18:59 Intake Total 780 / 780 365 / 365 Balance 780 / 780 365 / 365 Weight 68.2 kg Intake: IV 305 / 305 Azactam Inj 1,000 MG In NS Inj 200 / 200 100 ML @ 200 mls/hr IV.SIG Q8H [facility] Rx#:[id number] Keppra Inj 500 MG In NS Inj 100 105 / 105 ML @ 400 mls/hr IV.SIG Q12H [facility]ION Rx#:[id number] Oral 780 / 780 60 / 60 Other: # Voids 5 3 Date of Last Bowel Movement 05/25/18 05/25/18 # Bowel Movements 1 0 Physical Exam: CONSTITUTIONAL/GENERAL: This is an adequately nourished patient, in no apparent distress. TUBES/LINES/DRAINS: PIV, bilateral soft wrist restraints. SKIN: No jaundice, rashes, or lesions. Ecchymoses on upper extremities. No wounds seen anteriorly. Skin temperature appropriate. Not diaphoretic. HEAD: Atraumatic. Normocephalic. EYES: Pupils equal and round and reactive. No scleral icterus. No injection or drainage. ENT: Hearing grossly normal. Nose without bleeding or purulent drainage. Moist oral mucosa. NECK: Trachea midline. Supple, nontender. CARDIOVASCULAR: Regular rate and rhythm. Peripheral pulses symmetric. RESPIRATORY/CHEST: Symmetric, unlabored respirations. Clear to auscultation. Breath sounds equal bilaterally. No wheezes, rales, or rhonchi. GASTROINTESTINAL: Abdomen soft, non-tender, nondistended. No guarding. Bowel sounds present. GENITOURINARY: Without palpable bladder distension. MUSCULOSKELETAL: Extremities without clubbing, cyanosis, or edema. No mottling or clubbing. NEUROLOGICAL: Awake, alert. Nonverbal at baseline. PSYCHIATRIC: Appears calm. Diagnostic Tests Laboratory: Laboratory Results - last 72 hr 05/23/18 05/23/18 05/24/18 14:46 18:41 00:04 WBC RBC Hgb Hct MCV MCH MCHC RDW Plt Count MPV Neut % (Auto) Lymph % (Auto) [place] % (Auto) Eos % (Auto) Baso % (Auto) Neut # (Auto) Lymph # (Auto) [place] # (Auto) Eos # (Auto) Baso # (Auto) WBC Differential Differential Comment Sodium Potassium Chloride Carbon Dioxide Anion Gap BUN Creatinine Estimated GFR POC Glucose 180 H 102 130 H Random Glucose Calcium Vancomycin Trough 05/24/18 05/24/18 05/24/18 06:02 08:43 11:30 WBC RBC Hgb Hct MCV MCH MCHC RDW Plt Count MPV Neut % (Auto) Lymph % (Auto) [place] % (Auto) Eos % (Auto) Baso % (Auto) Neut # (Auto) Lymph # (Auto) [place] # (Auto) Eos # (Auto) Baso # (Auto) WBC Differential Differential Comment Sodium Potassium Chloride Carbon Dioxide Anion Gap BUN Creatinine Estimated GFR POC Glucose 107 152 H Random Glucose Calcium Vancomycin Trough 15.7 H 05/24/18 05/25/18 05/25/18 17:26 01:24 05:58 WBC 7.6 RBC 4.55 Hgb 13.9 Hct 40.2 MCV 88.5 MCH 30.6 MCHC 34.5 RDW 13.1 Plt Count 214 MPV 7.5 Neut % (Auto) 71.1 H Lymph % (Auto) 17.3 [place] % (Auto) 5.8 Eos % (Auto) 5.4 H Baso % (Auto) 0.4 Neut # (Auto) 5.4 Lymph # (Auto) 1.3 [place] # (Auto) 0.4 Eos # (Auto) 0.4 Baso # (Auto) 0.0 WBC Differential . Differential Comment Auto diff final Sodium Potassium Chloride Carbon Dioxide Anion Gap BUN Creatinine Estimated GFR POC Glucose 141 H 158 H Random Glucose Calcium Vancomycin Trough 05/25/18 05/25/18 05/25/18 06:12 12:10 23:53 WBC RBC Hgb Hct MCV MCH MCHC RDW Plt Count MPV Neut % (Auto) Lymph % (Auto) [place] % (Auto) Eos % (Auto) Baso % (Auto) Neut # (Auto) Lymph # (Auto) [place] # (Auto) Eos # (Auto) Baso # (Auto) WBC Differential Differential Comment Sodium Potassium Chloride Carbon Dioxide Anion Gap BUN Creatinine Estimated GFR POC Glucose 107 95 140 H Random Glucose Calcium Vancomycin Trough 05/26/18 05/26/18 05/26/18 03:42 03:42 06:00 WBC 7.0 RBC 4.80 Hgb 14.6 Hct 43.1 MCV 89.8 MCH 30.4 MCHC 33.9 RDW 13.1 Plt Count 231 MPV 7.6 Neut % (Auto) 63.6 Lymph % (Auto) 21.3 [place] % (Auto) 7.6 Eos % (Auto) 7.0 H Baso % (Auto) 0.5 Neut # (Auto) 4.5 Lymph # (Auto) 1.5 [place] # (Auto) 0.5 Eos # (Auto) 0.5 H Baso # (Auto) 0.0 WBC Differential . Differential Comment Auto diff final Sodium 139 Potassium 3.9 Chloride 105 Carbon Dioxide 29.9 Anion Gap 4 L BUN 15 Creatinine 0.71 Estimated GFR 85 L POC Glucose 118 H Random Glucose 119 H Calcium 9.2 Vancomycin Trough 05/26/18 12:00 WBC RBC Hgb Hct MCV MCH MCHC RDW Plt Count MPV Neut % (Auto) Lymph % (Auto) [place] % (Auto) Eos % (Auto) Baso % (Auto) Neut # (Auto) Lymph # (Auto) [place] # (Auto) Eos # (Auto) Baso # (Auto) WBC Differential Differential Comment Sodium Potassium Chloride Carbon Dioxide Anion Gap BUN Creatinine Estimated GFR POC Glucose 167 H Random Glucose Calcium Vancomycin Trough Result Diagrams: 05/26/18 03:42 05/26/18 03:42 Microbiology: Microbiology 05/22/18 21:11 Aerobic Blood Culture - Preliminary Blood - Peripheral No growth in 4 days Anaerobic Blood Culture - Preliminary No growth in 4 days 05/22/18 21:06 Aerobic Blood Culture - Preliminary Blood - Peripheral No growth in 4 days Anaerobic Blood Culture - Preliminary No growth in 4 days 05/22/18 03:01 Urine Culture - Final Catheterized Urine Escherichia coli Multidrug Resistant Assessment and Plan - Disease Oriented Problem List (1) Acute encephalopathy (2) Seizure (3) Hypothyroidism (4) Severe intellectual disability (5) Cerebral palsy (6) UTI (urinary tract infection) - Symptom Scale (1) Anxiety 0-10 Scale: Unable to quantify (2) Pain 0-10 Scale: Unable to quantify Pertinent Non-Medical Issues: Psychosocial: Patient with severe intellectual disability since . Resident of long-term facility. Her sister is her legal guardian. Never , no children. Patient has 1 sister and 2 brothers by the name of Shady and Ed Spiritual: No shinto affiliation. Legal: Legal guardianship. Ethical issues impacting care: No ethical issues identified. Important Contacts: Sister/guardian/healthcare surrogate: Ambar Gomes Prognosis: Ms. Henriquez is a 58-year-old female with a medical history significant for severe intellectual disability and cerebral palsy since . Patient resident of a long-term facility, depending on others for care, nonverbal. Presented to ED for evaluation of altered mental status from baseline. She was found hypothermic, obtunded with seizure activity on EEG. Concerns for meningitis. Family declined any invasive procedures or interventions given poor quality of life at baseline. Overall prognosis for survival is poor, likely days if illness run its natural course. Patient appears hospice appropriate. Code Status: No Code DNR Plan: * CODE STATUS: DNR/DNI. Court order to designate healthcare surrogate and DO NOT RESUSCITATE order in chart. * HEALTHCARE DECISION-MAKING: Patient lacks medical decision-making capacity in the setting of severe intellectual disability. Court order to designate healthcare surrogate decision making in file, patient's Sister Ambar Gomes listed as a guardian/healthcare surrogate decision-maker. She is at bedside and fully accepts this role. Alternate surrogate is patient's brother Timmy Henriquez. * GOALS OF CARE: Patient's sister Ambar Gomes acting as healthcare surrogate decision-maker is electing to continue current medical management to include IV antibiotic for a concurrent UTI. Plan to return patient to her long- term facility within the next 48 hours when she completes IV antibiotic course. Sister reports that they are not interested in hospice services at this time. Reviewed future role of hospice should patient's clinical condition worsen or additional functional decline. Sister receptive to this. * SYMPTOMS: = Anxiety: Chronic. Outpatient regimen of Xanax 0.25 twice daily, she has continued with same dose. = Seizure: Seizure activity on EEG. Currently on Keppra twice daily, neurology following. * Case discussed with hospice clinical marketer Tonya. * Palliative care contact information has been provided to patient's family. * Palliative care will continue to follow-up for further clarification of goals of care as patient's clinical course continues to evolve. Time Spent Total Floor Time (mins): 28 (Total time to include review of medical records, physical exam, goals of care conversation with patient's sister, case discussion with hospice clinical marketer.) >50% Time in Counseling or Coordination of Care: Yes (Total visit time = 28 minutes; > 50% spent counseling/coordinating care) Attestation Attestation: To help prompt me to consider important information that might be impacting today's encounter and assessment, information from prior notes written by myself or my colleagues may have been "brought forward" into today's note. My signature on this note, however, is an attestation that I personally performed the exam, history, and/or decision-making noted today, and, unless otherwise indicated, the interactions with patient, family, and staff as well as the review of records all occurred today. I also attest that the listed assessment and stated plan reflect my best clinical judgment today based on the combination of historical information, prior notes, and today's exam/ interactions. When time spent is documented, it refers only to time spent today by the signer, or if indicated, combined time spent today by collaborating physician/nurse practitioner.
--- NOTE | 2018-05-26 15:45 | P.PNIM ---
Subjective Interval history: Sister at bedside asking to talk with me. Sister is telling me to discharge the patient however the patient still has to be on 2 more days of IV antibiotics until 05/28/18. Patient does not appear in acute distress. She is nonverbal at bed baseline however she is nodding yes/no. Saturating well on room air. No fever or chills. No abdominal pain. She is still agitated on and off. Physical Exam Vital signs: Last Vital Signs Temp 99.6 F 05/26/18 12:00 Pulse 92 H 05/26/18 12:00 Resp 18 05/26/18 12:00 BP 176/86 H 05/26/18 12:00 Pulse Ox 93 L 05/26/18 12:00 Intake & Output 05/24/18 05/25/18 05/26/18 05/27/18 06:59 06:59 06:59 06:59 Intake Total 4495.0 / 4495.0 2494.5 / 2494.5 1145 / 1145 205 / 205 Output Total 1200 / 1200 702 / 702 Balance 3295.0 / 3295.0 1792.5 / 1792.5 1145 / 1145 205 / 205 Weight 70 kg 68.8 kg 68.2 kg Narrative: GENERAL: Patient is a well-nourished, well-developed female, awake, focusing , nonverbal at baseline, nods yes/no, not in distress. SKIN: Warm and dry. She has confluent blanching maculopapular rash in her trunk from below breast all the way down to her groin and upper thighs. CARDIOVASCULAR: Regular rate and rhythm. No murmurs, rubs or gallops heard RESPIRATORY: Clear to auscultation. Breath sounds equal bilaterally. No rales , wheezing or rhonchi ABDOMEN: Soft, non-tender, nondistended. Bowel sounds present and normoactive. No guarding. No rebound. No organomegaly. EXTREMITIES: No clubbing, cyanosis, or edema.No joint effusion, has good ROM. No calf tenderness. Well perfused and warm. NEUROLOGICAL: Awake and alert. No facial asymmetry. Moving all extremities PSYCHIATRIC: Agitated on/off Urinary Catheter Management Straight: Cath placed during this visit: yes, but has since been removed by the nurse Removal date: 05/22/18 Removal time: 03:10 Results Labs CBC & Chem 7: 05/26/18 03:42 05/26/18 03:42 Labs: Microbiology 05/22/18 21:11 Blood - Peripheral Aerobic Blood Culture - Preliminary No growth in 4 days 05/22/18 21:11 Blood - Peripheral Anaerobic Blood Culture - Preliminary No growth in 4 days 05/22/18 21:06 Blood - Peripheral Aerobic Blood Culture - Preliminary No growth in 4 days 05/22/18 21:06 Blood - Peripheral Anaerobic Blood Culture - Preliminary No growth in 4 days Assessment and Plan Plan 58-year-old white female admitted with acute encephalopathy, concern for possible meningitis Acute encephalopathy -significantly improved since yesterday after antibiotics were expanded -Still unsure if there was a component of meningitis since family has declined lumbar puncture -UTI likely related component, E. coli growing -Seizure activity was confirmed on EEG treat as below -Blood cultures negative -Broad-spectrum antibiotics of vancomycin, cefepime, ampicillin, de-escalate once UTI sensitivities return and monitor for 24 hours and trend CBC E. coli UTI Apparently is MDR -Continue azactam IV , ID specialist is ff Seizure activity -EEG suggestive of epileptiform activity -Keppra by neurology Hypothyroidism Severe mental retardation since -Noted to have significantly elevated TSH -Increase Synthroid dose orally HTN -start coreg to minimize rebound HTN from propranolol discontinuation -vasotec prn Tremor - hold home propranolol in light of [employer] depression risk Diet as tolerated Addendum: MDR E. coli UTI on azactan IV at this time per ID recs since patient was noted with rash poss drug reaction from previous abx. Discharge Planning: Palliative care and hospice following. CODE STATUS DNR Continue Azactam IV per infectious disease recommendations until 05/28/18 Progress Note: Quality VTE Deep Vein Thrombosis/Pulmonary Embolism Present on Admission: No
[2018-05-26] MEDS: Temazepam 15 MG Capsule PO SCH (21:25)
[2018-05-27] MEDS: Insulin NovoLOG Aspart Correctional Sugar Inj SQ SCH ×3 (00:04→12:23)
[2018-05-27 04:41] VITALS: RESP 18
[2018-05-27] MEDS: Levothyroxine 112 MCG Tablet PO SCH (05:29)
[2018-05-27] MEDS ORDERED: Carvedilol 6.25 MG Tablet PO SCH (07:47)
[2018-05-27] MEDS: ALPRAZolam 0.25 MG Tablet PO SCH (09:13)
[2018-05-27 09:43] VITALS: O2SAT 95
--- NOTE | 2018-05-27 12:20 | P.PNID ---
Subjective Remarks: Patient is a 58-year-old female, resides in the shelter, with known mental retardation and apparently patient is aphasic as a baseline, brought into the hospital when she was noted to be lethargic. She was given Narcan by the EMS with no improvement. Her mental status since has improved. Neurology is seeing the patient and evaluating her encephalopathy. Patient had an abnormal urinalysis, and the urine culture is now growing resistant E. coli. She is afebrile. She had low-grade temps yesterday up to 100. WBC is normal. When I saw the patient today I had noticed a confluent generalized maculopapular blanching rash in her trunk all the way to her groin and upper thigh. I spoke with the nurse who took care of her today, and the patient was apparently given a bathing today and there was no rash noted. She came from ICU, and has been here on the sixth floor for the last 2 hours and the nurse had noted the rash. Patient was initially on broad-spectrum antibiotics for ?ROBOTIC MACHINE TENDER PRODUCTION infection. She was on ampicillin, Rocephin, and vancomycin. Patient now is only on cefepime for coverage on the E. coli in the urine culture. She has no Gambino catheter. Infectious disease consultation has been requested to assist with evaluation and treatment. Notes reviewed Temps ok Patient awake, but non-verbal Has wrist restraints Rash looks better Antibiotics: Azactam Lines: PIV Past Medical History: Anxiety Cerebral palsy Osteoarthritis Seasonal allergic rhinitis Diabetes Hypothyroidism Intellectual disability Allergies/Adverse Reactions: Allergies chocolate flavor Allergy (Severe, Verified 05/23/18 22:55) Hives Objective Vital Signs 05/26/18 16:00 05/26/18 21:09 05/27/18 00:51 Temperature 99.1 F 99.0 F 98.2 F Pulse Rate 101 H 91 H 72 Respiratory Rate 18 18 17 Blood Pressure 149/90 H 199/91 H 134/62 Pulse Oximetry 93 L 95 93 L 05/27/18 04:40 05/27/18 08:00 Temperature 97.4 F L 98 F Pulse Rate 63 80 Respiratory Rate 18 18 Blood Pressure 160/67 H 170/101 H Pulse Oximetry 98 95 Intake & Output 05/26/18 05/27/18 05/27/18 18:59 06:59 18:59 Intake Total 685 / 685 425 / 425 Balance 685 / 685 425 / 425 Weight 68.2 kg Intake: IV 205 / 205 305 / 305 Azactam Inj 1,000 MG In NS Inj 100 / 100 200 / 200 100 ML @ 200 mls/hr IV.SIG Q8H [facility] Rx#:[id number] Keppra Inj 500 MG In NS Inj 100 105 / 105 105 / 105 ML @ 400 mls/hr IV.SIG Q12H [facility] Rx#:[id number] Oral 480 / 480 120 / 120 Other: # Incontinent Voids 4 3 Date of Last Bowel Movement 05/25/18 05/25/18 05/25/18 # Bowel Movements 0 0 05/22/18 21:11 Blood - Peripheral Aerobic Blood Culture - Final No growth in 5 days 05/22/18 21:11 Blood - Peripheral Anaerobic Blood Culture - Final No growth in 5 days 05/22/18 21:06 Blood - Peripheral Aerobic Blood Culture - Final No growth in 5 days 05/22/18 21:06 Blood - Peripheral Anaerobic Blood Culture - Final No growth in 5 days 05/22/18 03:01 Catheterized Urine Urine Culture - Final Escherichia coli Multidrug Resistant Lab - Hematology Results 05/26/18 03:42 WBC 7.0 RBC 4.80 Hgb 14.6 Hct 43.1 MCV 89.8 MCH 30.4 MCHC 33.9 RDW 13.1 Plt Count 231 MPV 7.6 Neut % (Auto) 63.6 Lymph % (Auto) 21.3 [place] % (Auto) 7.6 Eos % (Auto) 7.0 H Baso % (Auto) 0.5 Neut # (Auto) 4.5 Lymph # (Auto) 1.5 [place] # (Auto) 0.5 Eos # (Auto) 0.5 H Baso # (Auto) 0.0 WBC Differential . Differential Comment Auto diff final Lab - Chemistry Results 05/25/18 05/26/18 05/26/18 23:53 03:42 06:00 Sodium 139 Potassium 3.9 Chloride 105 Carbon Dioxide 29.9 Anion Gap 4 L BUN 15 Creatinine 0.71 Estimated GFR 85 L POC Glucose 140 H 118 H Random Glucose 119 H Calcium 9.2 05/26/18 05/26/18 05/27/18 12:00 17:08 00:01 Sodium Potassium Chloride Carbon Dioxide Anion Gap BUN Creatinine Estimated GFR POC Glucose 167 H 123 H 150 H Random Glucose Calcium 05/27/18 05/27/18 00:03 05:27 Sodium Potassium Chloride Carbon Dioxide Anion Gap BUN Creatinine Estimated GFR POC Glucose 146 H 128 H Random Glucose Calcium Imaging: ITS Impressions CT CAD 05/22/18 00:38 CONCLUSION: Physiological brain perfusion parameters with RAPID analysis as above. The decision for consideration of therapy is multi factorial and multi disciplinary relying on subjective and objective clinical data. This data is not construed or intended to be the sole determinant of treatment eligibility. Chest X-Ray 05/22/18 00:38 CONCLUSION: No acute cardiopulmonary process. Head CT 05/22/18 00:38 CONCLUSION: 1. No acute areas of hemorrhage or mass effect are seen. 2. Questionable hyperdense distal left M1 middle cerebral artery. This could be further evaluated with a CTA. The patient is scheduled for a CTA. Report was called by [Dr. Crawley to Dr. Delgado at 12:59 AM.] Head CTA 05/22/18 00:38 CONCLUSION: Negative CTA of the head. Neck CTA 05/22/18 00:38 CONCLUSION: 1. Plaque at the carotid bulb regions being worse than the left but a significant stenosis is not seen. 2. Asymmetry to the vertebral arteries which can be seen normally. The left vertebral artery is larger and continues as the basilar artery. The right vertebral artery ends at the posterior inferior cerebellar artery. 3. Normal appearance of the left vertebral artery arising directly from the aortic arch. Physical Exam: GENERAL: awake, focusing, tracking, NAD. Has wrist restraints SKIN: Warm and dry. Rash looks almost resolved HEAD: Atraumatic. Normocephalic. No temporal wasting, or tenderness. EYES: [place] conjunctiva. No petechia or hemorrhage. No scleral icterus. EARS, NOSE and THROAT: . Mucous membranes pink and moist. NECK: Trachea midline. Supple and not tender, no meningeal signs. NO nuchal rigidity CARDIOVASCULAR: Regular rate and rhythm. No murmurs, rubs or gallops heard RESPIRATORY: Clear to auscultation. Breath sounds equal bilaterally. No rales , wheezing or rhonchi ABDOMEN: Soft, non-tender, nondistended. Bowel sounds present and normoactive. No guarding. No rebound. EXTREMITIES: No clubbing, cyanosis, or edema. No calf tenderness. NEUROLOGICAL: Awake and alert. No facial asymmetry. Moving all extremities PSYCHIATRIC: Gets agitated during exam LINE: No evidence of infection Assessment and Plan - Plan Impression Altered mental status, ?sepsis, ?SZ/postictal state - clinically doubt ROBOTIC MACHINE TENDER PRODUCTION infection - ?back to baseline UTI, no gambino, has E coli Rash likely drug eruption, etiology? - she has received AMpicillin, Rocephin, Vanco and now Cefepime Mental retardation SNF resident Recommendation Macrobid x 10 more days Ok to stop Azactam Clinically stable from ID standpoint
[2018-05-27] MEDS ORDERED: Nitrofurantoin Monohydrate-Macrocrystal 100 MG Capsule PO SCH (12:30)
[2018-05-27 12:46] VITALS: BP 177/79; PULSE 93; TEMP 97.6
--- NOTE | 2018-05-27 13:57 | P.DS ---
DS: Providers Date of admission: 05/22/18 02:11 Primary care physician: UNKNOWN Consults: 05/22/18 00:38 Consult to Neurology Stat Consulting Provider: Lc Jones For STAT consult, spoke directly to:: jorge Reason for Consultation: Brain Attack Notified:: Service Spoke with:: Ciera Date Notified:: 05/22/18 Time Notified:: 00:47 Ordering Provider: XENA 05/23/18 08:39 Consult to Palliative Care Routine Consulting Provider: Leigh Parker Reason for Consultation: goals of care; daughter and son-in-law not wanting invasive procedures despite medical necessity Notified:: Service Spoke with:: PRASANNA Date Notified:: 05/23/18 Time Notified:: 08:55 Ordering Provider: MAGNUS 05/24/18 10:49 Consult to Infectious Diseases Routine Consulting Provider: Regina Yap Reason for Consultation: MDR Ecoli UTI Notified:: Service Spoke with:: PRASANNA Date Notified:: 05/24/18 Time Notified:: 11:24 Ordering Provider: MAGNUS Patient update on day of discharge: This patient is 58 years old female who came from a halfway with mental rhetoric retardation, admitted for altered mental status, questionable sepsis, seizure and postictal state with prednisone.of TORCH OPERATOR infection. Patient seen and examined laying in bed, eating lunch, sister in room assisting patient with eating. Sister reported patient does not talk at all. Patient smiles and offering some chips to me. Patient does not look like in any distress. Patient looks comfortable in bed. Caregiver came in at the bedside denies any concerns. DS: Summary This is a 58 yo female, who is aphasic, lives in a halfway with PMH hypothyroidism, DM II, Intellectual disability, severe mental retardation since , who was admitted for Altered mental status, ?sepsis, ?SZ/ postictal state, clinically doubt TORCH OPERATOR infection. Pt also had, UTI, no gambino, has E coli. She has received AMpicillin, Rocephin, Vanco and now Cefepime. ID consulted and changed the antibiotic to Azactam IV, dose finished and was changed to Macrobid for 10 more days. Patient is clinically stable per ID standpoint. Discussed discharge planning with Boiler Tester to return to halfway . Time Spent with Patient Total time spent providing and/or coordinating discharge services: Quality: VTE Deep Vein Thrombosis/Pulmonary Embolism Present on Admission: No Exam Narrative Exam Narrative: GENERAL: well developed, well nourished, female who does not talk, in no apparent distress SKIN: Warm and dry. HEAD: Atraumatic. Normocephalic. EYES: Pupils equal and round. No scleral icterus. No injection or drainage. ENT: No nasal bleeding or discharge. Mucous membranes pink and moist. NECK: Trachea midline. No JVD. CARDIOVASCULAR: Regular rate and rhythm. RESPIRATORY: No accessory muscle use. Clear to auscultation. Breath sounds equal bilaterally. GASTROINTESTINAL: Abdomen obese soft, non-tender, nondistended. Hepatic and splenic margins not palpable. MUSCULOSKELETAL: Extremities without clubbing, cyanosis, or edema. No obvious deformities. NEUROLOGICAL: Awake and alert. No obvious cranial nerve deficits. Generalized weakness in no apparent distress. Normal speech. PSYCHIATRIC: Appropriate mood and affect; insight and judgment unreliable Results Labs on day of discharge: Labs from last 24 hours 05/27/18 05/27/18 05/27/18 12:21 05:27 00:03 POC Glucose 129 H 128 H 146 H 05/27/18 05/26/18 00:01 17:08 POC Glucose 150 H 123 H Impressions ITS Impressions CT CAD 05/22/18 00:38 CONCLUSION: Physiological brain perfusion parameters with RAPID analysis as above. The decision for consideration of therapy is multi factorial and multi disciplinary relying on subjective and objective clinical data. This data is not construed or intended to be the sole determinant of treatment eligibility. Chest X-Ray 05/22/18 00:38 CONCLUSION: No acute cardiopulmonary process. Head CT 05/22/18 00:38 CONCLUSION: 1. No acute areas of hemorrhage or mass effect are seen. 2. Questionable hyperdense distal left M1 middle cerebral artery. This could be further evaluated with a CTA. The patient is scheduled for a CTA. Report was called by [Dr. Crawley to Dr. Delgado at 12:59 AM.] Head CTA 05/22/18 00:38 CONCLUSION: Negative CTA of the head. Neck CTA 05/22/18 00:38 CONCLUSION: 1. Plaque at the carotid bulb regions being worse than the left but a significant stenosis is not seen. 2. Asymmetry to the vertebral arteries which can be seen normally. The left vertebral artery is larger and continues as the basilar artery. The right vertebral artery ends at the posterior inferior cerebellar artery. 3. Normal appearance of the left vertebral artery arising directly from the aortic arch. Discharge Plan Discharge Disposition Patient Disposition: 04 [facility] Discharge Order Discharge Orders: Discharge Order (Routine); Ordered 05/27/18 Ordered By: Arianna Pena Discharge Details Anticipated Discharge Date: 05/27/18 Physicians Team ED Provider: Clem Delgado Primary Care Provider: UNKNOWN, Attending Provider: Ale Rader Other Providers: Lc Jones ; Leigh Parker ; Regina Yap Rxs /Orders / Referrals /Forms Prescriptions: New nitrofurantoin monohyd/m-cryst 100 mg Capsule 100 mg PO BIDPC 10 Days Qty: 20 RF: 0 Continue loperamide 2 mg Capsule 2 mg PO DAILY RF: 0 fexofenadine 180 mg Tablet 180 mg PO DAILY RF: 0 aspirin [Aspirin Low Dose] 81 mg Tablet,Delayed Release (Dr/Ec) 81 mg PO DAILY RF: 0 acetaminophen 500 mg Tablet 500 mg PO Q6H MDD 100mg PRN (Reason: Cough) RF: 0 guaifenesin [Tussin] 100 mg/5 mL Liquid 100 mg PO Q4HR RF: 0 propranolol 10 mg Tablet 10 mg PO BID RF: 0 alprazolam 0.25 mg Tablet 0.25 mg PO BID RF: 0 temazepam 15 mg Capsule 15 mg PO HS RF: 0 promethazine 25 mg Tablet 25 mg PO Q6H MDD 100 PRN (Reason: Cough) RF: 0 docusate sodium 100 mg Capsule 100 mg PO DAILY RF: 0 ferrous sulfate 325 mg (65 mg iron) Tablet,Delayed Release (Dr/Ec) 325 mg PO BID RF: 0 cholecalciferol (vitamin D3) [Vitamin D3] 1,000 unit Capsule 50,000 unit PO WEEKLY RF: 0 cetirizine 10 mg Capsule 10 mg PO DAILY RF: 0 levothyroxine 100 mcg Capsule 100 mcg PO DAILY RF: 0 Referrals: UNKNOWN, [Primary Care Provider] - See Instructions Discharge Interventions Interventions: Discharge Planning - Case Management Last Done: 05/26/18 12:58 Status ED Status: Left Department
--- NOTE | 2018-05-27 14:35 | P.PNPAL ---
Palliative care met with sister at patient's bedside. Gently explained Community DNR. Community DNR completed and placed on patient's chart for discharge. Copy sent to HIM to be scanned into EMR and copy provided to sister.
== END 2018-05-27 15:52 | DRG 71 ==
LOC: NEPE 00:28 → NEDA 02:11 → HIMC 04:05 → N06 05-24 12:25
PROVIDERS: ADMIT Internal Medicine; ATTEND Internal Medicine
CPT/HCPCS: 0042T; 36600; 70450; 70496; 70498; 71010; 71045; 76497; 76499; 80048; 80053; 80202; 80307; 81001; 82140; 82550; 82607; 82805; 82948; 82962; 84439; 84443; 84484; 85025; 85384; 85610; 85730; 86850; 86900; 86901; 87040; 87077; 87086; 87186; 87641; 92526; 92610; 93005; 95819; 96125; 97110; 97116; 97162; 99285; C9238; G0195; J0290; J0692; J0696; J1650; J1815; J1953; J3370; J3480; J7040; J7050; Q9967